=== PATIENT | male | born 1945 | race Caucasian/White ===

== ENCOUNTER 2018-08-13 10:12 | Outpatient (CLI) | payer MEDICARE ==
--- NOTE | 2018-08-13 11:52 | RAD ---
2 VIEWS CHEST: Date: 08/13/18 COMPARISON: 05/09/17. HISTORY: Fever, bronchitis. FINDINGS: Incompletely imaged cervical spine fusion hardware is present. There is degenerative change involving the acromioclavicular joints bilaterally. There is no pneumothorax, pleural fluid, lobar consolidati on, or alveolar edema. IMPRESSION: No focal consolidation or alveolar edema. POS: [facility]
== END 2018-08-13 10:13 | disposition home or self-care (01) ==
LOC: SCSRAD 10:12
PROVIDERS: ATTEND Nurse Practitioner Family
DX: J40 Bronchitis, not specified as acute or chronic (principal)
CPT/HCPCS: 71046

== ENCOUNTER 2019-01-21 06:25 | Outpatient (CLI) | payer MEDICARE ==
[2019-01-21 09:37] LABS: #Eosinphils 0.1 thou/uL (0.0-0.7); #Lymphocytes 1.7 thou/uL (1.20-3.40); #Monocytes 0.5 thou/uL (0.11-0.59); #Neutrophils 3.1 thou/uL (1.40-6.50); %Basophils 0.2 % (0.0-1.0); %Eosinophils 1.6 % (0.0-10.0); %Lymphocytes 30.7 % (21.0-51.0); %Monocytes 8.9 % (0.0-10.0); %Neutrophils 58.6 % (42.0-75.0); Hemoglobin 14.3 g/dL (14.0-18.0); Mean Corpuscular HGB CONC 33.2 g/dL (32.0-36.0); Mean Corpuscular Volume 99.6 fL (78.0-98.0); Mean Platelet Volume 7.9 fL (7.4-10.4); Platelet Count 169 thou/uL (130-400); RBC Distribution Width 11.3 % (11.5-14.5); Red Blood Cell (RBC) Count 4.34 mill/uL (4.70-6.10); White Blood Cell (WBC) Count 5.4 thou/uL (4.8-10.8)
[2019-01-21 09:59] LABS: ALT (SGPT) 15 U/L (8-55); AST (SGOT) 22 U/L (5-34); Albumin 4.5 g/dL (3.4-4.8); Alkaline Phosphatase 64 U/L (40-150); Anion Gap 14 mmol/L (10-20); BUN (Urea Nitrogen) 12 mg/dL (8.4-25.7); Bilirubin, Total 0.9 mg/dL (0.2-1.2); Calc. Creatinine Clearance 0 mL/min (70-130); Calcium 9.8 mg/dL (7.8-10.44); Carbon Dioxide 21 mmol/L (23-31); Chloride 103 mmol/L (98-107); Estimated GFR-MDRD 90; Globulin 2.9 g/dL (2.4-3.5); Glucose 82 mg/dL (83-110); Potassium 4.3 mmol/L (3.5-5.1); Protein, Total 7.4 g/dL (5.8-8.1); Sodium 134 mmol/L (136-145)
== END 2019-01-21 06:26 | disposition home or self-care (01) ==
LOC: LABBT 06:25
PROVIDERS: ATTEND Surgery
DX: Z01.812 Encounter for preprocedural laboratory examination (principal); K40.20 Bilateral inguinal hernia, without obstruction or gangrene, not specified as recurrent
CPT/HCPCS: 80053; 85025

== ENCOUNTER 2019-01-26 08:24 | Day surgery (SDC) | payer MEDICARE ==
[2019-01-21 08:28] VITALS: BMI 20.2
[2019-01-26] MEDS ORDERED: Levofloxacin 500 mg/D5W 100 ml Premix Bag ONE (09:08)
[2019-01-26] MEDS ORDERED: Fentanyl 100 MCG/2 ML VIAL ONE ×2 (10:16)
[2019-01-26] MEDS ORDERED: Bupivacaine/Epinephrine 0.25% 30 ML VIAL ONE (10:19)
--- NOTE | 2019-01-26 12:08 | OP ---
DATE OF PROCEDURE: 01/26/2019 PREOPERATIVE DIAGNOSIS: Bilateral inguinal hernia. PROCEDURES PERFORMED: Bilateral inguinal hernia repair with mesh. INDICATIONS: A 73-year-old male, who has enlarging bilateral groin bulges that caused pain. FINDINGS: He had an indirect and direct inguinal hernia on the left and a direct inguinal hernia on the right. DESCRIPTION OF PROCEDURE: After informed consent was obtained, the patient was taken to the operating room, given general mask anesthesia, placed in the supine position. His abdomen was prepped and draped in usual fashion. Local anesthesia infiltrated subcutaneously and deep. Approached the left side first. Transverse groin incision performed. Subcu divided sharply. The fascia of the external oblique was incised in direction of its fibers through the external ring. Spermatic cord isolated with a Jennifer drain. Cremasteric fiber , there was a hernia sac. This was dissected from surrounding cord structures down to the internal ring and reduced. Reduction maintained with a PHS hernia system, placed in the preperitoneal space. Anterior was laid out, sutured to the pubic tubercle medially. A notch was cut out for the spermatic cord, and laterally it was tucked under the external oblique fascia. Hemostasis was achieved. The mesh was sutured to the pubic tubercle with a 2-0 Prolene suture. Again, a notch cut out for the spermatic cord. The external oblique fascia was closed with a running 3-0 Vicryl. Tamera was closed with interrupted 3-0 Vicryl. Skin closed with a running subcuticular 4-0 Rapide. I then approached on the right side. Local anesthesia infiltrated subcutaneously, and deep transverse right inguinal incision was performed. Subcu divided sharply. The fascia of the external oblique was incised in direction of its fibers through the external ring. Spermatic cord isolated with a Jennifer drain. Cremasteric fibers . There was no indirect component. The direct hernia was circumscribed and reduced. Reduction maintained with a PHS hernia system, posterior placed in the preperitoneal space, anterior was laid out, tucked under the external oblique fascia laterally, sutured to the pubic tubercle medially with a 2-0 Prolene suture. A notch was cut out for the spermatic cord. Hemostasis was assured. The external oblique fascia closed over the cord with a running 3-0 Vicryl. Tamera was closed with interrupted 3-0 Vicryl and skin closed with a running subcuticular 4-0 Rapide. Steri-Strips applied. Sterile bandage applied. The patient tolerated the procedure well, transferred to Recovery in good condition. Sponge and needle count verified correct x2. Job ID: [id number]
[2019-01-26] MEDS ORDERED: PROPOFOL 200 MG/20 ML VIAL ONE (16:29)
[2019-01-26] MEDS ORDERED: ePHEDrine 50 MG/ML VIAL ONE (16:29)
[2019-01-26] MEDS ORDERED: Lidocaine 2% PF 5 ML VIAL ONE (16:29)
[2019-01-26] MEDS ORDERED: Dexamethasone 20 MG/5 ML VIAL ONE (16:29)
[2019-01-26] MEDS ORDERED: Ondansetron PF 4 MG/2 ML Vial ONE (16:29)
== END 2019-01-26 13:57 | disposition home or self-care (01) ==
LOC: SDC 08:24
PROVIDERS: ATTEND Surgery
PROC: 0YUA0JZ Supplement Bilateral Inguinal Region with Synthetic Substitute, Open Approach (ICD-10-PCS; principal; 2019-01-26)
DX: K40.20 Bilateral inguinal hernia, without obstruction or gangrene, not specified as recurrent (principal); I48.91 Unspecified atrial fibrillation; K21.9 Gastro-esophageal reflux disease without esophagitis; Z87.891 Personal history of nicotine dependence; Z88.0 Allergy status to penicillin; Z88.1 Allergy status to other antibiotic agents; Z79.82 Long term (current) use of aspirin; Z79.899 Other long term (current) drug therapy
CPT/HCPCS: C1781; J1100; J1956; J2001; J2405; J2704; J3010; J3490

== ENCOUNTER 2020-03-16 09:28 | Outpatient (CLI) | payer MEDICARE, OTHER ==
[2020-03-16 12:08] LABS: Anion Gap 14 mmol/L (10-20); BUN (Urea Nitrogen) 28 mg/dL (8.4-25.7); Calc. Creatinine Clearance 0 mL/min (70-130); Calcium 9.2 mg/dL (7.8-10.44); Carbon Dioxide 22 mmol/L (23-31); Chloride 105 mmol/L (98-107); Estimated GFR-MDRD 54; Glucose 89 mg/dL (83-110); Potassium 4.3 mmol/L (3.5-5.1); Sodium 137 mmol/L (136-145)
[2020-03-16 19:57] LABS: SARS-CoV-2 MS2 Positive; SARS-CoV-2 N Gene Negative; SARS-CoV-2 S Gene Negative; SARS-CoV-2 orf1ab Negative
== END 2020-03-16 09:29 | disposition home or self-care (01) ==
LOC: LABBT 09:28
PROVIDERS: ATTEND Surgery
DX: Z01.818 Encounter for other preprocedural examination (principal); Z11.59 Encounter for screening for other viral diseases; K40.91 Unilateral inguinal hernia, without obstruction or gangrene, recurrent
CPT/HCPCS: 80048; 93005; U0003; 87635; 93010

== ENCOUNTER 2020-03-21 10:22 | Day surgery (SDC) | payer MEDICARE ==
[2020-03-18 10:29] VITALS: BMI 19.5
[~2020-03-21 10:22] MED LIST: Lidocaine 1% PF 5 ML VIAL ONE; Ondansetron PF 4 MG/2 ML Vial ONE; PHENYLEPHRINE-NS 100 MCG/ML 10 ML SYRINGE ONE; PROPOFOL 200 MG/20 ML VIAL ONE; Rocuronium Bromide 10 MG/ML (10ML VIAL) ONE
[2020-03-21] MEDS ORDERED: Levofloxacin 500 mg/D5W 100 ml Premix Bag ONE (11:50)
[2020-03-21] MEDS ORDERED: Lidocaine 1% w/Epinephrine 1:100K 20 ML VIAL ONE (13:05)
[2020-03-21] MEDS ORDERED: Bupivacaine 0.25% HCL 30 ML VIAL ONE (13:05)
[2020-03-21] MEDS ORDERED: Fentanyl 100 MCG/2 ML VIAL ONE ×4 (13:13→15:17)
[2020-03-21] MEDS ORDERED: Morphine 4 MG/ML VIAL ONE (15:46)
--- NOTE | 2020-03-21 16:34 | OP ---
DATE OF PROCEDURE: 03/21/2020 PREOPERATIVE DIAGNOSIS: Right inguinal hernia, recurrent. POSTOPERATIVE DIAGNOSIS: Right inguinal hernia, recurrent. PROCEDURE PERFORMED: [place] laparoscopic right inguinal hernia repair with mesh, 3DMax large, recurrent hernia. ANESTHESIA: General. ESTIMATED BLOOD LOSS: Minimal. COMPLICATIONS: None. SPECIMENS: None. FINDINGS: Recurrent right inguinal hernia. DESCRIPTION OF PROCEDURE: The patient was taken to the operating room and laid supine on the operating room table. After general anesthetic was obtained, the bilateral abdomen and groins were shaved, prepped, and draped in a sterile fashion. A Escobedo catheter had been placed. A curved incision was made below the umbilicus. Cautery was used to dissect down to and score the fascia. Abdominal cavity was entered bluntly using a Ewelina clamp. Holding stitch of PDS was placed on each side of the fascia. Kaur trocar was placed and high-flow pneumoperitoneum was obtained. Left and right abdominal 8-mm robot trocars were placed. All ports were docked to the robot. Surgeon gone to the console. The peritoneum was taken down in the right lower quadrant into the preperitoneal space. Preperitoneal space was bluntly dissected, the pubic tubercle medially and anterior superior iliac crest laterally. There was some mesh in the medial area. There was a large indirect hernia. The indirect hernia sac was dissected away from the cord structures high up on to the peritoneum. The medial mesh was left in place and the 3DMax large mesh was brought on the sterile field. The M-labeled medial aspect was placed near over the pubic tubercle on the medial side. The mesh was curled up and overlying the pubic tubercle, so it was not fully exposed. The mesh was sewn medially and laterally medial to the pubic tubercle and lateral to the posterior fascia lateral to the vessels. The mesh was laid out to cover the femoral direct and indirect areas. The peritoneum was reapproximated using 3-0 Stratafix. All needles were removed from the abdomen and accounted for. All port sites were infiltrated using local anesthetic. All ports were removed under camera visualization. Pneumoperitoneum was let down. PDS was used to close the fascial defect above the umbilicus. All incisions were irrigated and closed using 4-0 Monocryl and Dermabond. The patient was sent to Recovery in stable condition. All instrument counts, needle counts, and lap counts were correct. Job ID: [id number]
== END 2020-03-21 16:42 | disposition home or self-care (01) ==
LOC: SDC 10:22
PROVIDERS: ATTEND Surgery
PROC: 0YU54JZ Supplement Right Inguinal Region with Synthetic Substitute, Percutaneous Endoscopic Approach (ICD-10-PCS; principal; 2020-03-21)
DX: K40.91 Unilateral inguinal hernia, without obstruction or gangrene, recurrent (principal); I48.91 Unspecified atrial fibrillation; K86.1 Other chronic pancreatitis; K21.9 Gastro-esophageal reflux disease without esophagitis; I25.10 Atherosclerotic heart disease of native coronary artery without angina pectoris; Z79.82 Long term (current) use of aspirin; Z79.899 Other long term (current) drug therapy; Z87.891 Personal history of nicotine dependence; Z88.0 Allergy status to penicillin; Z88.1 Allergy status to other antibiotic agents; Z95.5 Presence of coronary angioplasty implant and graft
CPT/HCPCS: C1781; J0690; J1956; J2270; J2405; J2704; J3010; S0020

== ENCOUNTER 2020-05-14 09:04 | Inpatient (IN) | payer MEDICAID, MEDICARE ==
--- NOTE | 2020-05-14 09:52 | RAD ---
EXAM: CHEST ONE VIEW HISTORY: Cough. COMPARISON: 12/23/2019 FINDINGS: Dual lead left subclavian cardiac pacemaking device remains in place. Cardiac silhouette is magnified by projection. Pulmonary vasculature is within normal limits. There are interstitial and patchy parenchymal opacity seen in the right perihilar region and at the right lung base with minimal left p erihilar interstitial densities seen. Findings are worrisome for infectious process. Viral pneumonitis in the correct clinical scenario is a possibility. Nodular density projecting over the le ft midlung zone is again seen and was also seen on prior study studies on 12/23/2019 and 09/20/2019. Elevation right hemidiaphragm is again seen. Postoperative changes lower cervical spine related to an terior cervical fusion are noted. Carotid artery calcifications are seen bilaterally. IMPRESSION: 1. Increased right perihilar interstitial and patchy airspace opacities with minimal increase in left perihilar interstitial opacities. Findings are worrisome for infectious process. Viral pneumonitis in the correct clinical scenario is a possibility. 2. Stable nodular density projecting over the left midlung zone. This could potentially represent a n ipple shadow, but follow-up chest x-ray with nipple markers in place is recommended.
[2020-05-14] MEDS ORDERED: Azithromycin 500 MG VIAL ONE (09:54)
[2020-05-14] MEDS ORDERED: cefTRIAXone\\ROCEPHIN 1 GM VIAL ONE (09:54)
[2020-05-14 09:56] LABS: #Lymphocytes 1.1 thou/uL (1.20-3.40); #Monocytes 0.4 thou/uL (0.11-0.59); #Neutrophils 4.2 thou/uL (1.40-6.50); %Basophils 0.6 % (0.0-1.0); %Eosinophils 0.7 % (0.0-10.0); %Lymphocytes 19.5 % (21.0-51.0); %Monocytes 6.2 % (0.0-10.0); %Neutrophils 73.1 % (42.0-75.0); Hemoglobin 14.1 g/dL (14.0-18.0); Mean Corpuscular HGB CONC 30.8 g/dL (32.0-36.0); Mean Corpuscular Hemoglobin 31.5 pg (27.0-31.0); Mean Platelet Volume 9.4 fL (7.4-10.4); Platelet Count 170 thou/uL (130-400); RBC Distribution Width 13.6 % (11.5-14.5); Red Blood Cell (RBC) Count 4.47 mill/uL (4.70-6.10); White Blood Cell (WBC) Count 5.7 thou/uL (4.8-10.8)
[2020-05-14 10:04] LABS: INR-International Normal Ratio 1.5; PTT 29.7 sec (22.9-36.1); Prothrombin Time 17.9 sec (12.0-14.7)
[2020-05-14 10:19] LABS: ALT (SGPT) 24 U/L (8-55); AST (SGOT) 21 U/L (5-34); Albumin 4.4 g/dL (3.4-4.8); Alkaline Phosphatase 66 U/L (40-110); Anion Gap 17 mmol/L (10-20); BUN (Urea Nitrogen) 19 mg/dL (8.4-25.7); Bilirubin, Total 1.5 mg/dL (0.2-1.2); Calc. Creatinine Clearance 0 mL/min (70-130); Calcium 9.2 mg/dL (7.8-10.44); Carbon Dioxide 19 mmol/L (23-31); Chloride 102 mmol/L (98-107); Estimated GFR-MDRD 63; Globulin 2.8 g/dL (2.4-3.5); Glucose 99 mg/dL (83-110); Potassium 4.2 mmol/L (3.5-5.1); Protein, Total 7.2 g/dL (5.8-8.1); Sodium 134 mmol/L (136-145)
[2020-05-14] MEDS ORDERED: Electrolyte Replacement Protoc 1 EACH EACH IVPB PRN (11:05)
[2020-05-14 11:13] LABS: Phosphorus 3.8 mg/dL (2.3-4.7)
[2020-05-14 11:19] LABS: CRP (Inflammatory) 4.99 mg/dL (= or < 0.5); Magnesium 1.8 mg/dL (1.6-2.6)
--- NOTE | 2020-05-14 11:19 | CT ---
CT CHEST WITHOUT CONTRAST CLINICAL INDICATION: Shortness of breath and wheezing. Pneumonia. Weakness. COMPARISON: 05/09/2017. FINDINGS: Aorta: Vascular calcifications are seen in the thoracic aorta. Vascular calcifications are also seen in the coronary arteries. Lungs: A moderately large right pleural effusion is present with associated passive atelectasis. Hesnley maryam, there are additional right perihilar interstitial and patchy alveolar density worrisome for associated infectious process. Mild patchy airspace density is seen in the left upper lobe which also could be related to focal area of pneumonitis. No left pleural effusion is seen. Mediastinum: Lack of intravenous contrast limits evaluation of the mediastinal structures and evaluat ion of lymphadenopathy. However, no discrete enlarged lymph node is seen. Dual lead left subclavian cardiac pacemaking device is noted in place. The heart is borderline enlarged. Thyroid gland: Artifact through this region which limits adequate evaluation. No large discrete thyro id nodule is appreciated. Osseous structures: Postoperative changes related to anterior cervical fusion are partially imaged in volving the lower cervical spine. A stable subcentimeter circumscribed lytic lesion is seen in the T12 vertebral body. This lucency was also seen on a study in 2012, and this study suggested that this lucency was secondary to Schmorl's node. Chest wall: No abnormality visualized. Upper abdomen: Postcholecystectomy changes are seen. Incompletely imaged subcentimeter hyperdense les ion is seen in the midportion right kidney which cannot be further characterized due to small size. Moderate amount retained fecal material seen in the splenic flexure. IMPRESSION: 1. Moderately large right pleural effusion and passive atelectasis. 2. Interstitial and patchy airspace densities in the right upper and right middle lobe as well as pat maribell density in the left upper lobe. Findings are worrisome for infectious process. Follow-up to resolution is recommended. 3.Cardiomegaly with vascular calcifications in the coronary arteries. 4. Incompletely imaged or evaluated increased density lesion midportion right kidney also partially i axel on the study in 2016.
[2020-05-14] MEDS ORDERED: Furosemide 40 MG/4 ML VIAL ONE (11:23)
[2020-05-14 11:27] LABS: SARS-CoV-2 NAA Rapid Test Not Detected (NotDetected)
[2020-05-14] MEDS ORDERED: Electrolyte Replacement Protocol FS PRN (11:30)
--- NOTE | 2020-05-14 12:20 | CT ---
BRAIN CT WITHOUT IV CONTRAST: HISTORY: Altered mental status. FINDINGS: Fairly marked stable bilateral atrophy. No focal mass or midline shift. Little change from prior . IMPRESSION: No mass or bleed or other significant acute intracranial process. POS: OFF
[2020-05-14] MEDS ORDERED: Sodium Chloride 0.9% 1,000 ML IV SCH (13:00)
--- NOTE | 2020-05-14 13:05 | PDOC.HHP ---
Hospitalist HPI - History of Present Illness Shortness of breath with breathing History of Present Illness: Patient is a 75-year-old male with atrial fibrillation, coronary artery disease and congestive heart failure presented to the emergency room shortness of breath and wheezing over the last 3 days. The son reported that patient has been seeing things like mice and spiders which were not actually there. This cough was essentially nonproductive. He also was short of breath on [id number] exertion. Due to worsening symptoms he was brought into the emergency room for evaluation. His vital signs in the emergency room showed temperature 97.8 respiration of 22 pulse rate of 104 with blood pressure of 112/96. The CT scan of the chest showed moderate large right pleural effusion with passive atelectasis along with right upper, right middle and left upper lobe interstitial and patchy air space densities consistent with pneumonia. Hospitalist ROS - Review of Systems Respiratory: reports: cough, dry Cardiovascular: denies: chest pain, palpitations, orthopnea, paroxysmal noc. dyspnea, edema, light headedness, other Gastrointestinal: denies: nausea, vomiting, abdominal pain, diarrhea, constipation, melena, hematochezia, other All other systems reviewed; all pertinent +/- noted in HPI/Subj - Medication Medications: Amiodarone, Eliquis, midodrine and Ambien as needed Patient is allergic to penicillin and Keflex.Causes generalized body swelling with rash per spouse Hospitalist History - Past Medical History Cardiac: reports: AFIB, CAD, Other (Orthostatic hypotension) Gastrointestinal: reports: Peptic ulcer disease Musculoskeletal: reports: Osteoarthritis - Past Surgical History Past Surgical History: reports: Appendectomy, Cholecystectomy, Other (Bilateral hernia repair, neck surgery, lumbar surgery, EGD, leukopenia, ERCP with sphincterotomy for gallstone pancreatitis, Pacemaker) - Family History Family History: reports: diabetes mellitus - Social History Smoking Status: Former smoker Alcohol: reports: None Drugs: reports: none Living Situation: With Family - Exam General Appearance: ill appearing General - other findings: Patient in mild respiratory distress Eye: PERRL, anicteric sclera ENT: normocephalic atraumatic, no oropharyngeal lesions Neck: supple, no JVD Heart: RRR, no gallops, no rubs, normal peripheral pulses Respiratory: no wheezes, normal chest expansion, rales, rhonchi Gastrointestinal: soft, non-tender, non-distended, normal bowel sounds Extremities: no cyanosis, no clubbing Neurological: cranial nerve grossly intact, normal sensation to touch, no weakness Musculoskeletal: normal tone, normal strength, generalized weakness Psychiatric: normal affect, A&O x 3 Hospitalist Results - Labs Result Diagrams: 05/14/20 09:36 05/14/20 09:36 Lab results: WBC 5.7 thou/uL (4.8-10.8) 05/14/20 09:36 Hgb 14.1 g/dL (14.0-18.0) 05/14/20 09:36 Hct 45.8 % (42.0-52.0) 05/14/20 09:36 MCV 102.0 fL (78.0-98.0) H 05/14/20 09:36 Plt Count 170 thou/uL (130-400) 05/14/20 09:36 Neutrophils % 73.1 % (42.0-75.0) 05/14/20 09:36 Sodium 134 mmol/L (136-145) L 05/14/20 09:36 Potassium 4.2 mmol/L (3.5-5.1) 05/14/20 09:36 Chloride 102 mmol/L (98-107) 05/14/20 09:36 Carbon Dioxide 19 mmol/L (23-31) L 05/14/20 09:36 BUN 19 mg/dL (8.4-25.7) 05/14/20 09:36 Creatinine 1.13 mg/dL (0.7-1.3) 05/14/20 09:36 Glucose 99 mg/dL (83-110) 05/14/20 09:36 Lactic Acid 1.8 mmol/L (0.5-2.2) 05/14/20 09:36 Calcium 9.2 mg/dL (7.8-10.44) 05/14/20 09:36 Total Bilirubin 1.5 mg/dL (0.2-1.2) H 05/14/20 09:36 AST 21 U/L (5-34) 05/14/20 09:36 ALT 24 U/L (8-55) 05/14/20 09:36 Alkaline Phosphatase 66 U/L (40-110) 05/14/20 09:36 Troponin I 0.015 ng/mL (< 0.028) 05/14/20 09:36 C-Reactive Protein 4.99 mg/dL (= or < 0.5) H 05/14/20 09:36 B-Natriuretic Peptide 1344.4 pg/mL (0-100) H 05/14/20 09:36 Serum Total Protein 7.2 g/dL (5.8-8.1) 05/14/20 09:36 Albumin 4.4 g/dL (3.4-4.8) 05/14/20 09:36 Laboratory Tests 05/14/20 05/14/20 05/14/20 09:21 09:36 09:36 Lactic Acid Magnesium Total Bilirubin 1.5 H Lactate Dehydrogenase 224 H Troponin I C-Reactive Protein B-Natriuretic Peptide 1344.4 H 05/14/20 05/14/20 05/14/20 09:36 09:36 09:36 Lactic Acid 1.8 Magnesium 1.8 Total Bilirubin Lactate Dehydrogenase Troponin I 0.015 C-Reactive Protein 4.99 H B-Natriuretic Peptide - EKG Interpretation EKG: Paced rhythm by my review - Radiology Interpretation CT scan - chest Status: image reviewed by me Additional Comment: Findings as discussed above Chest x-ray Status: image reviewed by me Additional Comment: Infiltrate with pleural effusion. Hospitalist H&P A/P - Problem (1) Sepsis due to pneumonia Code(s): J18.9 - PNEUMONIA, UNSPECIFIED ORGANISM; A41.9 - SEPSIS, UNSPECIFIED ORGANISM Status: Acute (2) Pleural effusion, right Code(s): J90 - PLEURAL EFFUSION, NOT ELSEWHERE CLASSIFIED Status: Acute (3) Toxic metabolic encephalopathy Code(s): G92 - TOXIC ENCEPHALOPATHY Status: Acute (4) Abnormal LFTs Code(s): R94.5 - ABNORMAL RESULTS OF LIVER FUNCTION STUDIES Status: Acute (5) Hyponatremia Code(s): E87.1 - HYPO-OSMOLALITY AND HYPONATREMIA Status: Acute (6) CAD (coronary artery disease) Code(s): I25.10 - ATHSCL HEART DISEASE OF [place] CORONARY ARTERY W/O ANG PCTRS Status: Chronic (7) Chronic atrial fibrillation Code(s): I48.20 - CHRONIC ATRIAL FIBRILLATION, UNSPECIFIED Status: Chronic (8) Former smoker Status: Chronic (9) H/O orthostatic hypotension Code(s): Z86.79 - PERSONAL HISTORY OF OTHER DISEASES OF THE CIRCULATORY SYSTEM Status: Chronic (10) Hypomagnesemia Code(s): E83.42 - HYPOMAGNESEMIA Status: Acute (11) History of peptic ulcer disease Code(s): Z87.11 - PERSONAL HISTORY OF PEPTIC ULCER DISEASE Status: Chronic - Plan Plan: Patient probably has pneumonia due to suspected gram-negative organism. He also has moderate right-sided pleural effusion. His mentation is slowly improving. He has moderate to severe allergies to penicillin. He will be started on aztreonam along with doxycycline. Will avoid Levaquin due to risk of QT prolongation with amiodarone. Pulmonary will be consulted. Will resume home medication including Eliquis. We may need to hold Eliquis if patient probably needs thoracentesis. Hold IV fluids for now. Per Dr. Zhu's office record patient had an echocardiogram on January 12 that showed moderate mitral regurg itation with ejection fraction of 40 to 45%. Will recheck labs in a.m. Replace magnesium. Full code verified with the spouse who is the D POA. Patient will require 2 to 3 days for stabilization. Will check strep pneumonia and Legionella urinary antigen.
[2020-05-14 13:13] LABS: Troponin I Less than 0.010 ng/mL (< 0.028)
[2020-05-14 13:14] VITALS: BMI 20.8
[2020-05-14] MEDS ORDERED: Calcium Carbonate 500 MG ChewTAB PO PRN (13:27)
[2020-05-14] MEDS ORDERED: Bisacodyl 10 MG SUPP PR PRN (13:27)
[2020-05-14] MEDS ORDERED: Senokot S 8.6-50 MG TAB PO PRN (13:27)
[2020-05-14] MEDS ORDERED: Melatonin 3 MG TAB PO PRN (13:31)
[2020-05-14] MEDS ORDERED: Meropenem 1 GM in Sodium Chloride 0.9% 100 ML IVPB SCH (13:45)
[2020-05-14] MEDS ORDERED: Magnesium 2 GM/50 ML 2 GM in Premix Bag 1 BAG IVPB SCH (14:00)
[2020-05-14] MEDS: Acetaminophen 325 MG TAB PO PRN (14:56)
[2020-05-14] MEDS: Aztreonam 2 GM in Sodium Chloride 0.9% 100 ML IVPB SCH (15:19)
--- NOTE | 2020-05-14 16:37 | CON ---
DATE OF CONSULTATION: 05/14/2020 SUBJECTIVE: Mr. Paris is a 75-year-old gentleman who states that he was in his usual state of health until the past month or two. Over that time, he has noted a worsening of exercise capacity from a 1 mile stamina down to about 100 yards. He denies any orthopnea, but has had fairly frequent PND. He has not noted any edema, but does note an increase in abdominal girth and a weight gain of about 5 pounds. He has not had any chest pain. He has a history of chronic atrial fib for which he is on rate-controlling agents and Eliquis. He has not had a previous myocardial infarction or known diagnosis of congestive heart failure. He does have an intermittent cough to go with his shortness of breath, but has not had any sputum, fevers or chills. He has had no recent travel or exposure. The patient presented to the emergency room for assessment of his dyspnea. Evaluation revealed a moderate to large right pleural effusion. He is subsequently admitted to the hospital for further intervention. Pulmonary Service is consulted. He has been placed on empiric antibiotics. SOCIAL HISTORY: The patient is a 75-year-old male. He reports allergy to penicillin and Keflex. He is a long-standing smoker, although recently his usage is decreased and he states that the cigarettes "just don't taste good." He has not had any other symptoms of loss of smell or taste. He has consumed alcohol in the past, none in many years. He is retired. MEDICATIONS: His home medications include; 1. Eliquis 5 mg b.i.d. 2. Amiodarone. 3. He has not been on a diuretic. PAST MEDICAL HISTORY: Remarkable for atrial fib on rate control and Eliquis. He denies a known history of chronic obstructive pulmonary disease or home oxygen. He denies a prior myocardial infarction or known diagnosis of heart failure. He has had bout of pancreatitis presumed secondary to his previous smoking. He has had back and neck surgery as well as a cholecystectomy. He has an AV pacer. FAMILY HISTORY: Noncontributory. REVIEW OF SYSTEMS: Remarkable as above. PHYSICAL EXAMINATION: VITAL SIGNS: Blood pressure 107/75, saturation 95% on oxygen, 2 L nasal cannula. He is currently afebrile, heart rate is 87, height 5 feet 11 inches, weight 149. His BMI is 20.9. GENERAL: He is a 75-year-old gentleman. He is awake and alert. He has slightly decreased hearing. HEENT: Neck; shows no adenopathy. He has no JVD. He has no carotid bruit. LUNGS: Show decreased breath sounds with dullness in the right base. There is no wheezing or rales. He is not using accessory muscles. HEART: Regular rate and rhythm. ABDOMEN: Soft. There is no organomegaly. There is no guarding or rebound. There is no tenderness. EXTREMITIES: Without cyanosis, clubbing, or edema. Chest x-ray shows pacemaker via the left approach. The heart size is normal. There is some elevation of the right diaphragm, but on CT, he has a large effusion suggesting that this is largely subpulmonic. I don't see an obvious mass. There is some compressive atelectasis in the right base. LABORATORY DATA: White count 5700, hemoglobin is 14.1, and platelet count 170,000. His Protime is 18 seconds with INR of 1.5. Electrolytes notable for sodium 134, potassium 4.2, chloride 102, CO2 is 19. Liver tests are negative. His BNP is elevated at 1345. His CRP is 5. Troponin is negative. His COVID swab is negative. IMPRESSION: 1. Dyspnea with pleural effusion, right, PND, and decrease in exercise capacity. This is most likely all related to his underlying effusion, which I predict that is secondary to a component of otherwise not yet diagnosed heart failure. 2. Chronic atrial fib on rate controlling agents and Eliquis. 3. Long-standing and active smoking history. PLAN: I have reviewed the radiographic findings with the patient as well as my diagnostic considerations. I think that he is an excellent candidate for diagnostic and therapeutic thoracentesis. I have talked to him about risks and benefits associated with the procedure. We will hold his Eliquis this evening and pursue thoracentesis by tomorrow followed by resumption of his medications. Echocardiogram has been requested. I have talked to the patient about the probable need for fluid restriction and salt restriction. He does note that he has had slightly less urinary output recently than he is accustomed to. Decision regarding more aggressive and invasive cardiac assessment is deferred at this time. I do not think that he has a pneumonia, but rather fluid associated compressive atelectasis. In most situations, I would assume he can be discharged fairly soon following thoracentesis. Thank you for this consultation. Pulmonary Service will continue to follow. Job ID: [id number]
[2020-05-14 20:28] LABS: Strep pneumo Urine Ag NEGATIVE (NEGATIVE)
[2020-05-14 20:29] LABS: Legionella Urinary Ag Negative (Negative)
[2020-05-14] MEDS ORDERED: Zolpidem Tartrate 5 MG TAB PO SCH (21:00)
[2020-05-14] MEDS: Doxycycline 100 MG CAP PO SCH (21:08)
[2020-05-14] MEDS: guaiFENesin ER 600 MG TAB PO SCH (21:09)
[2020-05-14] MEDS: Midodrine HCl 5 MG TAB PO SCH (21:09)
[2020-05-14] MEDS: Famotidine 20 MG TAB PO SCH (21:09)
[2020-05-15] MEDS: Aztreonam 2 GM in Sodium Chloride 0.9% 100 ML IVPB SCH ×2 (01:53→14:54)
[2020-05-15 06:07] LABS: #Lymphocytes 1.2 thou/uL (1.20-3.40); #Monocytes 0.7 thou/uL (0.11-0.59); #Neutrophils 5.2 thou/uL (1.40-6.50); %Basophils 0.4 % (0.0-1.0); %Eosinophils 0.5 % (0.0-10.0); %Lymphocytes 16.4 % (21.0-51.0); %Monocytes 9.8 % (0.0-10.0); Hemoglobin 13.8 g/dL (14.0-18.0); Mean Corpuscular HGB CONC 32.7 g/dL (32.0-36.0); Mean Corpuscular Hemoglobin 33.2 pg (27.0-31.0); Mean Platelet Volume 9.9 fL (7.4-10.4); Platelet Count 139 thou/uL (130-400); RBC Distribution Width 13.7 % (11.5-14.5); Red Blood Cell (RBC) Count 4.16 mill/uL (4.70-6.10); White Blood Cell (WBC) Count 7.1 thou/uL (4.8-10.8)
[2020-05-15 06:31] LABS: ALT (SGPT) 22 U/L (8-55); AST (SGOT) 20 U/L (5-34); Albumin 3.8 g/dL (3.4-4.8); Alkaline Phosphatase 59 U/L (40-110); Anion Gap 17 mmol/L (10-20); BUN (Urea Nitrogen) 21 mg/dL (8.4-25.7); Calc. Creatinine Clearance 58 mL/min (70-130); Calcium 8.5 mg/dL (7.8-10.44); Carbon Dioxide 19 mmol/L (23-31); Chloride 103 mmol/L (98-107); Estimated GFR-MDRD 68; Globulin 2.5 g/dL (2.4-3.5); Glucose 86 mg/dL (83-110); Potassium 4.2 mmol/L (3.5-5.1); Protein, Total 6.3 g/dL (5.8-8.1); Sodium 135 mmol/L (136-145)
[2020-05-15] MEDS: Midodrine HCl 5 MG TAB PO SCH ×2 (08:57→20:00)
[2020-05-15] MEDS: Famotidine 20 MG TAB PO SCH ×2 (08:57→20:00)
[2020-05-15] MEDS: Doxycycline 100 MG CAP PO SCH ×2 (08:57→20:00)
[2020-05-15] MEDS: Saccharomyces boulardii 250 MG CAP PO SCH (08:57)
[2020-05-15] MEDS: Cyanocobalamin (Vitamin B-12) 1,000 MCG TAB PO SCH (08:58)
[2020-05-15] MEDS: Multivit, Therapeutic 1 TAB PO SCH (08:58)
[2020-05-15] MEDS: Amiodarone 200 MG TAB PO SCH (08:58)
[2020-05-15] MEDS: guaiFENesin ER 600 MG TAB PO SCH ×2 (08:58→20:00)
[2020-05-15] MEDS: Folic Acid 1 MG TAB PO SCH (08:58)
[2020-05-15] MEDS ORDERED: Aspirin 81 mg Enteric Coated Tablet PO SCH (09:00)
--- NOTE | 2020-05-15 12:47 | RAD ---
CHEST 1 VIEW: HISTORY: Followup thoracentesis, shortness of breath. FINDINGS: There has been a marked decrease in the size of the previously noted right pleural effusion. No evid ence for significant pneumothorax. Heart size is normal. The left lung is clear. Stable left trans venous pacemaker. IMPRESSION: Decrease in the right pleural effusion. No significant pneumothorax. POS: OFF
--- NOTE | 2020-05-15 12:48 | PRG ---
DATE OF SERVICE: 05/15/2020 SUBJECTIVE: Mr. Paris feels that he is a little less dyspneic today than he was yesterday. His echocardiogram has been completed, but results are pending. He still has exertional dyspnea when trying to get to the bathroom. He has no PND or orthopnea last night. PHYSICAL EXAMINATION: VITAL SIGNS: Blood pressure is 111/79, he is afebrile, heart rate 100, respiratory rate 16, and pulse ox is 97% on 2 L cannula. GENERAL: He is awake, alert, and not in acute distress. He is not using accessory muscles. HEENT: Shows no adenopathy or JVD. LUNGS: Clear on the left. He has decreased breath sounds with dullness in the right base. HEART: Regular rate and rhythm. ABDOMEN: Soft. EXTREMITIES: He has no significant peripheral edema. LABORATORY DATA: White count 7100, hemoglobin is 13.8, and platelet count 139,000. Electrolytes today include sodium 135, potassium 4.2, chloride 103, CO2 is 19, BUN 21, creatinine 1.5. Liver tests are normal. His TSH was elevated at 7.7. IMPRESSION: 1. Dyspnea with pleural effusion, suggestive of heart failure with dyspnea. The patient has pleural effusion on exam. He has a history of chronic atrial fibrillation and I suspect that he has occult left ventricular dysfunction. Echocardiogram has been performed, but results are not yet available. Given his progressive respiratory symptoms, thoracentesis for diagnosis, and therapeutic benefit was planned today. Eliquis has been held since last night. 2. Chronic atrial fibrillation. PLAN: We will do thoracentesis. Fluid will be sent for appropriate analysis. The majority of unilateral effusions associated with heart failure are on the right and that would be consistent with this patient's presentation. He has had progressive PND and a reduction in exercise capacity. From a purely effusion related perspective, he can be discharged following thoracentesis to follow up in the Pulmonary Clinic and with his primary care physician. Job ID: [id number]
[2020-05-15 13:16] LABS: Pleural Fluid, Protein 1.7 g/dL
[2020-05-15 13:18] LABS: RBC Count-Automated (BF) 17604 /cu.mm; WBC/Nucleated-Auto (BF) 358 uL
[2020-05-15 13:30] LABS: BF Color Red; Body Fluid Source Pleural Fluid; Clarity Cloudy/Turbid (Clear); Tube # EDTA
[2020-05-15 13:43] LABS: BF Segmented Neutrophils 27 %; Cell Count Non Hematic 42 %; Lymphocytes 30 %
--- NOTE | 2020-05-15 16:46 | PDOC.HOSPP ---
- Subjective Encounter Date: 05/15/20 Encounter Time: 09:00 Subjective: Patient seen and examined for pneumonia with pleural effusion. Denies any fever or chills. Dry cough reported. Short of breath on moderate exertion. - Objective Vital Signs & Weight: Vital Signs (12 hours) Temp Pulse Resp BP Pulse Ox 05/15/20 13:59 91 16 98 05/15/20 08:00 97.3 F L 100 16 111/79 97 05/15/20 06:17 99 16 100 05/15/20 05:19 97.8 F 76 18 132/63 98 Weight Weight 149 lb 9.6 oz I&O: 05/14/20 05/15/20 05/16/20 06:59 06:59 06:59 Intake Total 360 Balance 360 Result Diagrams: 05/15/20 05:21 05/15/20 05:21 Additional Labs: Accuchecks 05/15/20 00:05 POC Glucose 97 Radiology Reviewed by me: Yes (CT chestbilateral infiltrate with right pleural effusion) Hospitalist ROS - Review of Systems Cardiovascular: denies: chest pain, palpitations, orthopnea, paroxysmal noc. dyspnea, edema, light headedness, other Gastrointestinal: denies: nausea, vomiting, abdominal pain, diarrhea, constipation, melena, hematochezia, other - Medication Medications: Active Medications Generic Name Dose Route Start Last Admin Trade Name Freq PRN Reason Stop Dose Admin Acetaminophen 650 mg 05/14/20 13:27 05/14/20 14:56 Acetaminophen 325 Mg Tab PO 650 mg Q4H PRN Administration Headache/Fever/Mild Pain (1-3) Albuterol/Ipratropium 3 ml 05/14/20 13:31 05/15/20 06:17 Ipratropium/Albuterol Sulfate 3 Ml Neb NEB 3 ml Q4H PRN Administration SOB &/or Wheezing Amiodarone HCl 200 mg 05/15/20 09:00 05/15/20 08:58 Amiodarone 200 Mg Tab PO 200 mg QAM YANY Administration Cyanocobalamin 1,000 mcg 05/15/20 09:00 05/15/20 08:58 Cyanocobalamin (Vitamin B-12) 1,000 Mcg Tab PO 1,000 mcg DAILY YANY Administration Doxycycline Hyclate 100 mg 05/14/20 21:00 05/15/20 08:57 Doxycycline 100 Mg Cap PO 100 mg BID YANY Administration Famotidine 20 mg 05/14/20 21:00 05/15/20 08:57 Famotidine 20 Mg Tab PO 20 mg BID YANY Administration Folic Acid 1 mg 05/15/20 09:00 05/15/20 08:58 Folic Acid 1 Mg Tab PO 1 mg DAILY YANY Administration Guaifenesin 600 mg 05/14/20 21:00 05/15/20 08:58 Guaifenesin Er 600 Mg Tab PO 600 mg Q12HR YANY Administration Aztreonam 2 gm/ Sodium 100 mls @ 100 mls/hr 05/14/20 14:00 05/15/20 14:54 Chloride IVPB 100 mls 0200,1400 YANY Administration Midodrine 2.5 mg 05/14/20 21:00 05/15/20 08:57 Midodrine Hcl 5 Mg Tab PO 2.5 mg BID YANY Administration Multivitamins 1 tab 05/15/20 09:00 05/15/20 08:58 Multivit, Therapeutic 1 Tab PO 1 tab DAILY YANY Administration Saccharomyces Boulardii 250 mg 05/15/20 09:00 05/15/20 08:57 Saccharomyces Boulardii 250 Mg Cap PO 250 mg DAILY YANY Administration Sodium Chloride 10 ml 05/14/20 21:00 05/15/20 08:58 Flush - Normal Saline 10 Ml Syringe IVF 10 ml Q12HR YANY Administration Zolpidem Tartrate 5 mg 05/14/20 21:00 05/14/20 21:08 Zolpidem Tartrate 5 Mg Tab PO 5 mg HS YANY Administration - Exam General Appearance: NAD Neck: supple, no JVD Heart: RRR, no gallops, no rubs, normal peripheral pulses Respiratory: no wheezes, normal chest expansion, rales, rhonchi Respiratory - other findings: Diminished air entry at right base Gastrointestinal: soft, non-distended, normal bowel sounds, no guarding, no rigidity Extremities: no cyanosis, no clubbing, no edema Extremities - other findings: No calf tenderness Neurological: no new deficit Musculoskeletal: generalized weakness Psychiatric: normal affect, A&O x 3 Hosp A/P (1) Sepsis due to pneumonia Code(s): J18.9 - PNEUMONIA, UNSPECIFIED ORGANISM; A41.9 - SEPSIS, UNSPECIFIED ORGANISM Status: Acute (2) Pleural effusion, right Code(s): J90 - PLEURAL EFFUSION, NOT ELSEWHERE CLASSIFIED Status: Acute (3) Toxic metabolic encephalopathy Code(s): G92 - TOXIC ENCEPHALOPATHY Status: Acute (4) Abnormal LFTs Code(s): R94.5 - ABNORMAL RESULTS OF LIVER FUNCTION STUDIES Status: Acute (5) Hyponatremia Code(s): E87.1 - HYPO-OSMOLALITY AND HYPONATREMIA Status: Acute (6) CAD (coronary artery disease) Code(s): I25.10 - ATHSCL HEART DISEASE OF [place] CORONARY ARTERY W/O ANG PCTRS Status: Chronic (7) Chronic atrial fibrillation Code(s): I48.20 - CHRONIC ATRIAL FIBRILLATION, UNSPECIFIED Status: Chronic (8) Former smoker Status: Chronic (9) H/O orthostatic hypotension Code(s): Z86.79 - PERSONAL HISTORY OF OTHER DISEASES OF THE CIRCULATORY SYSTEM Status: Chronic (10) Hypomagnesemia Code(s): E83.42 - HYPOMAGNESEMIA Status: Acute (11) History of peptic ulcer disease Code(s): Z87.11 - PERSONAL HISTORY OF PEPTIC ULCER DISEASE Status: Chronic - Plan DVT proph w/SCDs 05/15 Continue his DuoNeb with doxycycline. Thoracentesis today. Pulmonary input appreciated. Eliquis on hold. LFTs improved. Continue amiodarone, midodrine and other home medications as above. Blood cultures negative so far.
[2020-05-15] MEDS ORDERED: Zolpidem Tartrate 5 MG TAB PO PRN (16:49)
--- NOTE | 2020-05-15 17:22 | OP ---
DATE OF PROCEDURE: 05/15/2020 PROCEDURE: Thoracentesis, right. PREOPERATIVE DIAGNOSIS: Symptomatic pleural effusion. POSTOPERATIVE DIAGNOSIS: Symptomatic pleural effusion. DESCRIPTION OF PROCEDURE: Following informed consent, the patient was seated on the bedside. The posterior chest was prepped and draped and a fluid level identified by percussion. Following topical anesthesia with lidocaine, thoracentesis was performed in the usual fashion. Approximately 1000 mL of light pink colored fluid was aspirated without difficulty. The procedure was terminated when all of the fluid had been removed. The patient noted no change in symptoms. Postprocedure x-ray is pending and the fluid is sent for appropriate analysis. Job ID: [id number]
[2020-05-15] MEDS: Apixaban 5 MG TAB PO SCH (20:00)
[2020-05-16] MEDS: Aztreonam 2 GM in Sodium Chloride 0.9% 100 ML IVPB SCH ×2 (01:53→14:17)
[2020-05-16 05:52] LABS: #Neutrophils 5.7 thou/uL (1.40-6.50); %Basophils 0.2 % (0.0-1.0); %Eosinophils 0.3 % (0.0-10.0); %Lymphocytes 12.6 % (21.0-51.0); %Monocytes 13.3 % (0.0-10.0); %Neutrophils 73.7 % (42.0-75.0); Hemoglobin 12.1 g/dL (14.0-18.0); Mean Corpuscular HGB CONC 32.8 g/dL (32.0-36.0); Mean Corpuscular Hemoglobin 33.1 pg (27.0-31.0); Mean Platelet Volume 9.5 fL (7.4-10.4); Platelet Count 136 thou/uL (130-400); RBC Distribution Width 13.6 % (11.5-14.5); Red Blood Cell (RBC) Count 3.65 mill/uL (4.70-6.10); White Blood Cell (WBC) Count 7.7 thou/uL (4.8-10.8)
[2020-05-16 06:13] LABS: Anion Gap 14 mmol/L (10-20); BUN (Urea Nitrogen) 24 mg/dL (8.4-25.7); Calc. Creatinine Clearance 59 mL/min (70-130); Calcium 8.1 mg/dL (7.8-10.44); Carbon Dioxide 18 mmol/L (23-31); Chloride 106 mmol/L (98-107); Estimated GFR-MDRD 70; Glucose 96 mg/dL (83-110); Magnesium 1.7 mg/dL (1.6-2.6); Potassium 3.8 mmol/L (3.5-5.1); Sodium 134 mmol/L (136-145)
[2020-05-16] MEDS ORDERED: Magnesium 2 GM/50 ML 2 GM in Premix Bag 1 BAG IVPB SCH (07:30)
--- NOTE | 2020-05-16 07:45 | PDOC.HOSPP ---
- Subjective Encounter Date: 05/16/20 Encounter Time: 07:42 Subjective: much less sob pos-thoracentesis - Objective Vital Signs & Weight: Vital Signs (12 hours) Temp Pulse Resp BP BP Pulse Ox 05/16/20 06:54 97.8 F 107 H 16 93/64 95 05/16/20 04:00 98.4 F 102 H 18 107/74 95 05/16/20 00:18 94 L 05/16/20 00:00 98.4 F 105 H 18 105/67 94 L Weight Weight 149 lb 9.6 oz I&O: 05/15/20 05/16/20 05/17/20 06:59 06:59 06:59 Intake Total 360 480 Balance 360 480 Result Diagrams: 05/16/20 05:24 05/16/20 05:24 Hospitalist ROS - Medication Medications: Active Medications Generic Name Dose Route Start Last Admin Trade Name Freq PRN Reason Stop Dose Admin Acetaminophen 650 mg 05/14/20 13:27 05/14/20 14:56 Acetaminophen 325 Mg Tab PO 650 mg Q4H PRN Administration Headache/Fever/Mild Pain (1-3) Albuterol/Ipratropium 3 ml 05/14/20 13:31 05/15/20 06:17 Ipratropium/Albuterol Sulfate 3 Ml Neb NEB 3 ml Q4H PRN Administration SOB &/or Wheezing Amiodarone HCl 200 mg 05/15/20 09:00 05/15/20 08:58 Amiodarone 200 Mg Tab PO 200 mg QAM YANY Administration Apixaban 5 mg 05/14/20 21:00 05/15/20 20:00 Apixaban 5 Mg Tab PO 5 mg BID YANY Administration Cyanocobalamin 1,000 mcg 05/15/20 09:00 05/15/20 08:58 Cyanocobalamin (Vitamin B-12) 1,000 Mcg Tab PO 1,000 mcg DAILY YANY Administration Doxycycline Hyclate 100 mg 05/14/20 21:00 05/15/20 20:00 Doxycycline 100 Mg Cap PO 100 mg BID YANY Administration Famotidine 20 mg 05/14/20 21:00 05/15/20 20:00 Famotidine 20 Mg Tab PO 20 mg BID YANY Administration Folic Acid 1 mg 05/15/20 09:00 05/15/20 08:58 Folic Acid 1 Mg Tab PO 1 mg DAILY YANY Administration Guaifenesin 600 mg 05/14/20 21:00 05/15/20 20:00 Guaifenesin Er 600 Mg Tab PO 600 mg Q12HR YANY Administration Aztreonam 2 gm/ Sodium 100 mls @ 100 mls/hr 05/14/20 14:00 05/16/20 01:53 Chloride IVPB 100 mls 0200,1400 YANY Administration Melatonin 3 mg 05/14/20 13:31 05/15/20 20:08 Melatonin 3 Mg Tab PO 3 mg HS PRN Administration Insomnia Midodrine 2.5 mg 05/14/20 21:00 05/15/20 20:00 Midodrine Hcl 5 Mg Tab PO 2.5 mg BID YANY Administration Multivitamins 1 tab 05/15/20 09:00 05/15/20 08:58 Multivit, Therapeutic 1 Tab PO 1 tab DAILY YANY Administration Saccharomyces Boulardii 250 mg 05/15/20 09:00 05/15/20 08:57 Saccharomyces Boulardii 250 Mg Cap PO 250 mg DAILY YANY Administration Sodium Chloride 10 ml 05/14/20 21:00 05/15/20 21:09 Flush - Normal Saline 10 Ml Syringe IVF 10 ml Q12HR YANY Administration - Exam General Appearance: awake alert Neck: no JVD Heart: no murmur, irregular Respiratory - other findings: basilar rales Gastrointestinal: soft, non-tender, normal bowel sounds Extremities: no edema Hosp A/P (1) Acute systolic HF (heart failure) Code(s): I50.21 - ACUTE SYSTOLIC (CONGESTIVE) HEART FAILURE Status: Acute (2) Cardiomyopathy Code(s): I42.9 - CARDIOMYOPATHY, UNSPECIFIED Status: Acute Qualifiers: Cardiomyopathy type: ischemic Qualified Code(s): I25.5 - Ischemic cardiomy opathy (3) PNA (pneumonia) Code(s): J18.9 - PNEUMONIA, UNSPECIFIED ORGANISM Status: Acute Qualifiers: Lung location: unspecified part of lung (4) Chronic atrial fibrillation Code(s): I48.20 - CHRONIC ATRIAL FIBRILLATION, UNSPECIFIED Status: Chronic (5) Pleural effusion, right Code(s): J90 - PLEURAL EFFUSION, NOT ELSEWHERE CLASSIFIED Status: Acute (6) CAD (coronary artery disease) Code(s): I25.10 - ATHSCL HEART DISEASE OF [place] CORONARY ARTERY W/O ANG PCTRS Status: Chronic Qualifiers: Coronary Disease-Associated Artery/Lesion type: [place] artery [place] vs. transplanted heart: [place] heart Associated angina: without angina Qualified Code(s): I25.10 - Atherosclerotic heart disease of [place] coronary artery without angina pectoris - Plan consult Dr Zhu start low dose lisinopril Hx orthstatic hypotension necessitates slow titration
[2020-05-16] MEDS: Doxycycline 100 MG CAP PO SCH ×2 (08:22→21:00)
[2020-05-16] MEDS: Saccharomyces boulardii 250 MG CAP PO SCH (08:23)
[2020-05-16] MEDS: Apixaban 5 MG TAB PO SCH ×2 (08:23→19:00)
[2020-05-16] MEDS: Famotidine 20 MG TAB PO SCH ×2 (08:23→21:00)
[2020-05-16] MEDS: Folic Acid 1 MG TAB PO SCH (08:23)
[2020-05-16] MEDS: guaiFENesin ER 600 MG TAB PO SCH ×2 (08:23→21:00)
[2020-05-16] MEDS: Multivit, Therapeutic 1 TAB PO SCH (08:24)
[2020-05-16] MEDS: Amiodarone 200 MG TAB PO SCH (08:24)
[2020-05-16] MEDS: Cyanocobalamin (Vitamin B-12) 1,000 MCG TAB PO SCH (08:24)
[2020-05-16] MEDS: Midodrine HCl 5 MG TAB PO SCH ×2 (08:26→21:00)
--- NOTE | 2020-05-16 10:22 | PRG ---
DATE OF SERVICE: 05/16/2020 SUBJECTIVE: He is status post thoracentesis for transudative right chest. He is feeling better. OBJECTIVE: VITAL SIGNS: Temperature 97, pulse 107, respirations 16, sats are 95% on 2 L, blood pressure 93/64. CHEST: No wheezing. No crackles. CARDIAC: Normal S1, S2. No gallops. ABDOMEN: No masses. LABORATORY DATA: Unremarkable. EF shows 20%. ASSESSMENT AND PLAN: Respiratory failure, congestive heart failure, cardiac arrhythmias, urinary tract infection. Pulmonary manrique, appears to be relatively stable. Input from Cardiology. Disposition, hopefully, he can be discharged home in the next several days. Job ID: [id number]
[2020-05-16] MEDS: Lisinopril 2.5 MG TAB PO SCH (12:49)
--- NOTE | 2020-05-16 21:08 | CON ---
DATE OF CONSULTATION: HISTORY OF PRESENT ILLNESS: Xavier Paris is a 75-year-old white male, initially evaluated in the office on January 07, 2020. He has had multiple coronary stents placed in the past. He has history of atrial fibrillation and is on amiodarone. When I initially saw him, he had never been anticoagulated. He had dizziness and a pacemaker was placed on December 23, 2019, at [facility] by Dr. Coppola. This was a [employer] dual-chamber pacemaker. That evening, he could not breathe and systolic pressure was in the 60s. Paramedics were called. He was taken to [facility]. He had a moderate pericardial effusion. He was given IV fluids, but no other intervention. He did not have any chest pain. He was treated conservatively and then discharged. He continued to complain of episodes of lightheadedness. When I initially saw him on interrogation of his pacemaker and showed that he was having episodes of atrial fibrillation up to 16 minutes, although it is unclear if that was correlated with his episodes of lightheadedness. He underwent echocardiography, which revealed ejection fraction of 40% to 45% with mild global hypokinesis. Pacemaker is seen in the right side of the heart. There is moderate mitral regurgitation, mild tricuspid regurgitation. He returned for followup on January 24 and was placed on Eliquis. He was seen in the office on April 26, 2020, and denied any chest pain or shortness of breath. He now presents complaining of increased shortness of breath and wheezing. He had nonproductive cough. Chest CT showed moderately large right pleural effusion. He did undergo right thoracentesis with removal of 1 L of fluid. He had patchy airspace densities consistent with pneumonia. Echocardiogram revealed severe worsening of his left ventricular function. Mr. Paris denies any chest discomfort. PAST MEDICAL HISTORY: Paroxysmal atrial fibrillation since May 2012, coronary artery disease, stent placement, hyperlipidemia, hypertension, peripheral vascular disease, pancreatitis in 2005. PAST SURGICAL HISTORY: Appendectomy; cholecystectomy; 8 stents placed in the LAD; PTCA, and stent of the left peroneal artery; neck surgery; pacemaker insertion; hiatal hernia surgery. MEDICATIONS: 1. Amiodarone 200 mg q.a.m. 2. Eliquis 5 mg b.i.d. 3. Folic acid 1 mg daily. 4. Midodrine one tablet b.i.d. 5. Ambien p.r.n. ALLERGIES: PENICILLIN AND CEPHALEXIN. SOCIAL HISTORY: Smokes one pack per day. Initially, he saw me and he said that he had stopped in late 2018. He now admits that he continues to smoke. REVIEW OF SYSTEMS: A 10-point review of systems is otherwise unremarkable. PHYSICAL EXAMINATION: VITAL SIGNS: Blood pressure 114/78, pulse of 100. HEENT: PERRL. NECK: Supple. CHEST: Clear. CARDIAC: S1 and S2 normal without any S3 or S4. There are no murmurs. ABDOMEN: Normal bowel sounds without tenderness or organomegaly. EXTREMITIES: Reveal no clubbing, cyanosis, or edema. NEUROLOGIC: Grossly intact. LABORATORY DATA: EKG revealed ventricular pacing. Echocardiogram revealed ejection fraction of 15% to 20%, moderately enlarged right ventricle, pacemaker in the right ventricle, left atrial enlargement, severe mitral regurgitation, aortic valve sclerosis, trace tricuspid regurgitation. Hemoglobin 12.1, hematocrit 36.7, white count 7700, platelets 136,000. Sodium 134, potassium 3.8, chloride 106, carbon dioxide 18, BUN 24, creatinine 1.03. TSH is elevated at 7.7077. Cardiac enzymes are unremarkable. BNP 1344.4. IMPRESSION: 1. Increased shortness of breath, multifactorial. He does have evidence of pneumonia on chest CT, and probably he is having some degree of chronic obstructive pulmonary disease exacerbation. 2. Significant worsening of left ventricular function with ejection fraction falling from 40% to 45% in December 2019 to 15% to 20% at this time. He is 100% ventricularly pace looking at his pacemaker. Some reprogramming was performed and now he is not ventricularly paced at all. There was some degree of pacemaker mediated tachycardia. Certainly, prolonged ventricular pacing may have worsened his LV function. This will need to be closely watched. 3. Coronary artery disease with history of stent placement. 4. Status post dual-chamber pacemaker placement. 5. Paroxysmal atrial fibrillation with continued episodes at times on the pacemaker. 6. History of pericardial effusion after pacemaker placement. 7. Hypertension. 8. Hypercholesterolemia. 9. Smoker. 10. Positive family history. PLAN: The patient had his pacemaker reprogrammed and now is not ventricularly pacing. Left ventricular function has significantly worsened and as his blood pressure will allow, should be placed on JAZMIN inhibitors and carvedilol. Also consideration need to be given to placement of LifeVest prior to discharge. Job ID: [id number] MTDJudy
[2020-05-17] MEDS: Aztreonam 2 GM in Sodium Chloride 0.9% 100 ML IVPB SCH ×2 (02:20→14:42)
[2020-05-17] MEDS: Doxycycline 100 MG CAP PO SCH ×2 (08:36→20:52)
[2020-05-17] MEDS: Multivit, Therapeutic 1 TAB PO SCH (08:36)
[2020-05-17] MEDS: Lisinopril 2.5 MG TAB PO SCH (08:36)
[2020-05-17] MEDS: Midodrine HCl 5 MG TAB PO SCH ×2 (08:37→20:51)
[2020-05-17] MEDS: Amiodarone 200 MG TAB PO SCH (08:37)
[2020-05-17] MEDS: Saccharomyces boulardii 250 MG CAP PO SCH (08:37)
[2020-05-17] MEDS: guaiFENesin ER 600 MG TAB PO SCH ×2 (08:38→20:52)
[2020-05-17] MEDS: Famotidine 20 MG TAB PO SCH ×2 (08:38→20:52)
[2020-05-17] MEDS: Folic Acid 1 MG TAB PO SCH (08:38)
[2020-05-17] MEDS: Cyanocobalamin (Vitamin B-12) 1,000 MCG TAB PO SCH (08:38)
[2020-05-17] MEDS: Apixaban 5 MG TAB PO SCH ×2 (08:39→21:00)
--- NOTE | 2020-05-17 09:02 | PQF ---
CLINICAL DOCUMENTATION CLARIFICATION FORM: Dear Dr. Solis Date: 05/17/2020 Please exercise your independent, professional judgment in responding to the clarification form. Clinical indicators are provided on the bottom of this form for your review. Please check appropriate box(es) to clarify if the following diagnosis has been ruled in our ruled out: SEPSIS [ ] Ruled in diagnosis [ ] Continue to treat [ ] Resolved [ x] Ruled out diagnosis [ ] Cannot rule out diagnosis [ ] Other diagnosis [ ] Unable to determine In addition, please specify: Present on Admission (POA): [ ] Yes [ x] No [ ] Unable to determine For continuity of documentation, please document condition throughout progress notes and discharge summary. Thank You. CLINICAL INDICATORS - SIGNS / SYMPTOMS / LABS / RESULTS AND LOCATION IN EMR *ED 05/14: * Vital Signs: Pulse 101-108 RR 22-24 Temp (max) 97.8 * EKG shows, Rate of 104 electronic pacemaker * Pneumonia * Doubt over sepsis *LAB (EMR): WBC Neutrophils % Lactic Acid CRP 05/14 5.7 73.1 1.8 4.99 05/15- 7.1-7.7 73.0-73.7 *H&P 05/05 ([facility]): * The CT scan of the chest showed moderate large right pleural effusion with passive atelectasis along with right upper, righter middle, and left upper lobe interstitial and patchy air space densities consistent with pneumonia. * Patient in mild respiratory distress * Sepsis due to pneumonia * Toxic metabolic encephalopathy *Consultation 05/14 ([facility]): Dyspnea with pleural effusion, right, PND, and decrease in exercise capacity. This is most likely all related to his underlying effusion a component of otherwise not yet diagnosed heart failure. *Consultation 05/16 ([facility]): * Increased shortness of breath, multifactorial. * There was some degree of pacemaker mediated tachycardia. RISK FACTORS / RESULTS AND LOCATION IN EMR *ED 05/14: Pneumonia TREATMENTS / RESULTS AND LOCATION IN EMR *ED 05/14: Azithromycin IV, NS 1L IV, Ceftriaxone IV *H&P 05/14 ([facility]): He will be started on aztreonam along with doxycycline. Will check strep pneumonia and Legionella urinary antigen. *LAB (EMR): CBC 05/14-05/16, CRP 05/14, Lactic Acid 05/14 *Pulmonology Consultation 05/14 ([place]) Thank you, Sunitha CDS/Tattoo Artist Signature: Sunitha Manjarrez RN, CDS Phone #: [phone] [email or web address] This is a permanent part of the Medical Record [facility]
--- NOTE | 2020-05-17 10:27 | PRG ---
DATE OF SERVICE: 05/17/2020 SUBJECTIVE: Xavier Paris is a 75-year-old gentleman, status post thoracentesis, less short of breath. OBJECTIVE: VITAL SIGNS: Temperature 96, pulse 70, respiratory rate 18, saturations are 96% on room air, blood pressure 120/76. CHEST: Decreased breath sounds. No wheezing. CARDIAC: Normal S1 and S2. No gallops. ABDOMEN: No masses. ASSESSMENT AND PLAN: Congestive heart failure, transudative pleural effusion, status post dual-chamber pacemaker. Cardiology is following. Not much for Pulmonary to offer at this time. His EF is down to 20%. Prognosis remains guarded. Job ID: [id number]
--- NOTE | 2020-05-17 11:06 | PDOC.HOSPP ---
- Subjective Encounter Date: 05/17/20 Encounter Time: 11:04 Subjective: nosob,cough - Objective Vital Signs & Weight: Vital Signs (12 hours) Temp Pulse Resp BP Pulse Ox 05/17/20 08:36 70 05/17/20 08:00 96.6 F L 70 18 128/76 97 05/17/20 07:58 97 05/17/20 04:55 97.8 F 67 24 H 103/52 L 97 Weight Weight 153 lb 12.8 oz I&O: 05/16/20 05/17/20 05/18/20 06:59 06:59 06:59 Intake Total 480 120 Balance 480 120 Result Diagrams: 05/16/20 05:24 05/16/20 05:24 Hospitalist ROS - Medication Medications: Active Medications Generic Name Dose Route Start Last Admin Trade Name Freq PRN Reason Stop Dose Admin Acetaminophen 650 mg 05/14/20 13:27 05/14/20 14:56 Acetaminophen 325 Mg Tab PO 650 mg Q4H PRN Administration Headache/Fever/Mild Pain (1-3) Albuterol/Ipratropium 3 ml 05/14/20 13:31 05/15/20 06:17 Ipratropium/Albuterol Sulfate 3 Ml Neb NEB 3 ml Q4H PRN Administration SOB &/or Wheezing Amiodarone HCl 200 mg 05/15/20 09:00 05/17/20 08:37 Amiodarone 200 Mg Tab PO 200 mg QAM YANY Administration Apixaban 5 mg 05/14/20 21:00 05/17/20 08:39 Apixaban 5 Mg Tab PO 5 mg BID YANY Administration Cyanocobalamin 1,000 mcg 05/15/20 09:00 05/17/20 08:38 Cyanocobalamin (Vitamin B-12) 1,000 Mcg Tab PO 1,000 mcg DAILY YANY Administration Doxycycline Hyclate 100 mg 05/14/20 21:00 05/17/20 08:36 Doxycycline 100 Mg Cap PO 100 mg BID YANY Administration Famotidine 20 mg 05/14/20 21:00 05/17/20 08:38 Famotidine 20 Mg Tab PO 20 mg BID YANY Administration Folic Acid 1 mg 05/15/20 09:00 05/17/20 08:38 Folic Acid 1 Mg Tab PO 1 mg DAILY YANY Administration Guaifenesin 600 mg 05/14/20 21:00 05/17/20 08:38 Guaifenesin Er 600 Mg Tab PO 600 mg Q12HR YANY Administration Aztreonam 2 gm/ Sodium 100 mls @ 100 mls/hr 05/14/20 14:00 05/17/20 02:20 Chloride IVPB 100 mls 0200,1400 YANY Administration Lisinopril 2.5 mg 05/16/20 09:00 05/17/20 08:36 Lisinopril 2.5 Mg Tab PO 2.5 mg DAILY YANY Administration Melatonin 3 mg 05/14/20 13:31 05/15/20 20:08 Melatonin 3 Mg Tab PO 3 mg HS PRN Administration Insomnia Midodrine 2.5 mg 05/14/20 21:00 05/17/20 08:37 Midodrine Hcl 5 Mg Tab PO 2.5 mg BID YANY Administration Multivitamins 1 tab 05/15/20 09:00 05/17/20 08:36 Multivit, Therapeutic 1 Tab PO 1 tab DAILY YANY Administration Saccharomyces Boulardii 250 mg 05/15/20 09:00 05/17/20 08:37 Saccharomyces Boulardii 250 Mg Cap PO 250 mg DAILY YANY Administration Sodium Chloride 10 ml 05/14/20 21:00 05/17/20 08:40 Flush - Normal Saline 10 Ml Syringe IVF 10 ml Q12HR YANY Administration - Exam General Appearance: awake alert Neck: no JVD Heart: RRR, no murmur Respiratory - other findings: decreased bs,adverse on right Gastrointestinal: soft, non-tender, normal bowel sounds Extremities: no edema Hosp A/P (1) Acute systolic HF (heart failure) Code(s): I50.21 - ACUTE SYSTOLIC (CONGESTIVE) HEART FAILURE Status: Acute (2) Cardiomyopathy Code(s): I42.9 - CARDIOMYOPATHY, UNSPECIFIED Status: Acute Qualifiers: Cardiomyopathy type: ischemic Qualified Code(s): I25.5 - Ischemic cardiomyopathy (3) PNA (pneumonia) Code(s): J18.9 - PNEUMONIA, UNSPECIFIED ORGANISM Status: Acute Qualifiers: Lung location: unspecified part of lung (4) Chronic atrial fibrillation Code(s): I48.20 - CHRONIC ATRIAL FIBRILLATION, UNSPECIFIED Status: Chronic (5) Pleural effusion, right Code(s): J90 - PLEURAL EFFUSION, NOT ELSEWHERE CLASSIFIED Status: Acute (6) CAD (coronary artery disease) Code(s): I25.10 - ATHSCL HEART DISEASE OF [place] CORONARY ARTERY W/O ANG PCTRS Status: Chronic Qualifiers: Coronary Disease-Associated Artery/Lesion type: [place] artery [place] vs. transplanted heart: [place] heart Associated angina: without angina Qualified Code(s): I25.10 - Atherosclerotic heart disease of [place] coronary artery without angina pectoris - Plan rpt cxr-PA&Lat contantibx, lisinoril decideondiuretic/coreg post cxr review
--- NOTE | 2020-05-17 11:59 | RAD ---
2 views of the chest: 05/17/2020 COMPARISON: 05/15/2020 HISTORY: CHF, pneumonia FINDINGS: There is a dual lead transvenous pacing device. Anterior discectomy and fusion hardware of the cervical spine noted. There is blunting of the right costophrenic angle suggesting a small right pleural effusion. Mild hazy increased density noted within the adjacent right lower lobe which may signify associated infiltrate or volume loss. Mild increased linear interstitial density noted with pulmonary hyperinflation. No discrete pneumothorax, lobar consolidation, or alveolar edema. When compared to the 05/15/2020 examination, the right pleural effusion has increased in volume. IMPRESSION: Small but enlarging right pleural effusion. Mild adjacent parenchymal opacity in the righ t base.
--- NOTE | 2020-05-17 15:11 | PDOC.EVN ---
Event Note - Event Note Event Note: mild increase R pleural effusion, no cardiomegaly. start coreg/po lasix discuss with Dr Zhu
[2020-05-17] MEDS: Carvedilol 3.125 MG TAB PO SCH (17:13)
[2020-05-18] MEDS: Aztreonam 2 GM in Sodium Chloride 0.9% 100 ML IVPB SCH ×2 (03:13→14:33)
[2020-05-18] MEDS: Lisinopril 2.5 MG TAB PO SCH (08:51)
[2020-05-18] MEDS: Multivit, Therapeutic 1 TAB PO SCH (08:51)
[2020-05-18] MEDS: Doxycycline 100 MG CAP PO SCH ×2 (08:51→21:41)
[2020-05-18] MEDS: Midodrine HCl 5 MG TAB PO SCH ×2 (08:51→21:41)
[2020-05-18] MEDS: Famotidine 20 MG TAB PO SCH ×2 (08:51→21:41)
[2020-05-18] MEDS: Amiodarone 200 MG TAB PO SCH (08:52)
[2020-05-18] MEDS: Carvedilol 3.125 MG TAB PO SCH ×2 (08:52→17:36)
[2020-05-18] MEDS: Folic Acid 1 MG TAB PO SCH (08:52)
[2020-05-18] MEDS: Cyanocobalamin (Vitamin B-12) 1,000 MCG TAB PO SCH (08:52)
[2020-05-18] MEDS: Furosemide 40 MG TAB PO SCH (08:52)
[2020-05-18] MEDS: Saccharomyces boulardii 250 MG CAP PO SCH (08:52)
[2020-05-18] MEDS: Apixaban 5 MG TAB PO SCH ×2 (08:52→21:42)
[2020-05-18] MEDS: guaiFENesin ER 600 MG TAB PO SCH ×2 (08:52→21:42)
--- NOTE | 2020-05-18 10:22 | PRG ---
DATE OF SERVICE: 05/18/2020 SUBJECTIVE: This morning, he is awake, alert, and responsive. His x-ray yesterday showed a small right pleural effusion. OBJECTIVE: VITAL SIGNS: His temperature is 97, pulse 92, room air, blood pressure 120/78. CHEST: No wheezing. No crackles. CARDIAC: Normal S1 and S2. No gallops. ABDOMEN: No masses. IMPRESSION: Congestive heart failure, pleural effusion, stable. From pulmonary standpoint of view, again cardiac care, disposition home as per primary care physician. Job ID: [id number]
--- NOTE | 2020-05-18 10:23 | PDOC.HOSPP ---
- Subjective Encounter Date: 05/18/20 Encounter Time: 10:18 Subjective: walking in [place] without O2 - Objective Vital Signs & Weight: Vital Signs (12 hours) Temp Pulse Resp BP Pulse Ox 05/18/20 08:51 92 05/18/20 07:24 96 05/18/20 03:34 92 16 95 05/18/20 03:25 96 05/18/20 03:17 97.4 F L 61 18 124/78 96 05/18/20 00:00 66 18 Weight Weight 156 lb 3.2 oz I&O: 05/17/20 05/18/20 05/19/20 06:59 06:59 06:59 Intake Total 120 800 Balance 120 800 Result Diagrams: 05/16/20 05:24 05/16/20 05:24 Hospitalist ROS - Medication Medications: Active Medications Generic Name Dose Route Start Last Admin Trade Name Freq PRN Reason Stop Dose Admin Acetaminophen 650 mg 05/14/20 13:27 05/14/20 14:56 Acetaminophen 325 Mg Tab PO 650 mg Q4H PRN Administration Headache/Fever/Mild Pain (1-3) Albuterol/Ipratropium 3 ml 05/14/20 13:31 05/18/20 03:34 Ipratropium/Albuterol Sulfate 3 Ml Neb NEB 3 ml Q4H PRN Administration SOB &/or Wheezing Amiodarone HCl 200 mg 05/15/20 09:00 05/18/20 08:52 Amiodarone 200 Mg Tab PO 200 mg QAM YANY Administration Apixaban 5 mg 05/14/20 21:00 05/18/20 08:52 Apixaban 5 Mg Tab PO Not Given BID YANY Carvedilol 3.125 mg 05/17/20 17:00 05/18/20 08:52 Carvedilol 3.125 Mg Tab PO 3.125 mg BID-WM YANY Administration Cyanocobalamin 1,000 mcg 05/15/20 09:00 05/18/20 08:52 Cyanocobalamin (Vitamin B-12) 1,000 Mcg Tab PO 1,000 mcg DAILY YANY Administration Doxycycline Hyclate 100 mg 05/14/20 21:00 05/18/20 08:51 Doxycycline 100 Mg Cap PO 100 mg BID YANY Administration Famotidine 20 mg 05/14/20 21:00 05/18/20 08:51 Famotidine 20 Mg Tab PO 20 mg BID YANY Administration Folic Acid 1 mg 05/15/20 09:00 05/18/20 08:52 Folic Acid 1 Mg Tab PO 1 mg DAILY YANY Administration Furosemide 40 mg 05/18/20 07:30 05/18/20 08:52 Furosemide 40 Mg Tab PO 40 mg DAILY-AC YANY Administration Guaifenesin 600 mg 05/14/20 21:00 05/18/20 08:52 Guaifenesin Er 600 Mg Tab PO 600 mg Q12HR YANY Administration Aztreonam 2 gm/ Sodium 100 mls @ 100 mls/hr 05/14/20 14:00 05/18/20 03:13 Chloride IVPB 100 mls 0200,1400 YANY Administration Lisinopril 2.5 mg 05/16/20 09:00 05/18/20 08:51 Lisinopril 2.5 Mg Tab PO 2.5 mg DAILY YANY Administration Melatonin 3 mg 05/14/20 13:31 05/15/20 20:08 Melatonin 3 Mg Tab PO 3 mg HS PRN Administration Insomnia Midodrine 2.5 mg 05/14/20 21:00 05/18/20 08:51 Midodrine Hcl 5 Mg Tab PO 2.5 mg BID YANY Administration Multivitamins 1 tab 05/15/20 09:00 05/18/20 08:51 Multivit, Therapeutic 1 Tab PO 1 tab DAILY YANY Administration Saccharomyces Boulardii 250 mg 05/15/20 09:00 05/18/20 08:52 Saccharomyces Boulardii 250 Mg Cap PO 250 mg DAILY YANY Administration Sodium Chloride 10 ml 05/14/20 21:00 05/18/20 08:53 Flush - Normal Saline 10 Ml Syringe IVF 10 ml Q12HR YANY Administration Zolpidem Tartrate 5 mg 05/15/20 16:49 05/17/20 20:56 Zolpidem Tartrate 5 Mg Tab PO 5 mg HSPRN PRN Administration Insomnia - Exam General Appearance: awake alert Neck: no JVD Heart: RRR Respiratory: CTAB Gastrointestinal: soft, normal bowel sounds Extremities: no edema Hosp A/P (1) Acute systolic HF (heart failure) Code(s): I50.21 - ACUTE SYSTOLIC (CONGESTIVE) HEART FAILURE Status: Acute (2) Cardiomyopathy Code(s): I42.9 - CARDIOMYOPATHY, UNSPECIFIED Status: Acute Qualifiers: Cardiomyopathy type: ischemic Qualified Code(s): I25.5 - Ischemic cardiomyopathy (3) PNA (pneumonia) Code(s): J18.9 - PNEUMONIA, UNSPECIFIED ORGANISM Status: Acute Qualifiers: Lung location: unspecified part of lung (4) Chronic atrial fibrillation Code(s): I48.20 - CHRONIC ATRIAL FIBRILLATION, UNSPECIFIED Status: Chronic (5) Pleural effusion, right Code(s): J90 - PLEURAL EFFUSION, NOT ELSEWHERE CLASSIFIED Status: Acute (6) CAD (coronary artery disease) Code(s): I25.10 - ATHSCL HEART DISEASE OF [place] CORONARY ARTERY W/O ANG PCTRS Status: Chronic Qualifiers: Coronary Disease-Associated Artery/Lesion type: [place] artery [place] vs. transplanted heart: [place] heart Associated angina: without angina Qualified Code(s): I25.10 - Atherosclerotic heart disease of [place] coronary artery without angina pectoris - Plan cont lasix, lasic, lisinopril rpt echo pending pacer lead reposition plannd holding [employer]
--- NOTE | 2020-05-18 15:53 | CON ---
DATE OF CONSULTATION: 05/18/2020 REASON FOR CONSULTATION: Cardiomyopathy, pacemaker management. CONSULTED PHYSICIAN: Raimundo Barros MD HISTORY OF PRESENT ILLNESS: Mr. Paris is a 75-year-old gentleman, who presented to the hospital with shortness of breath, pneumonia, and generalized weakness with fever. He follows with Dr. Zhu for cardiac care. An echocardiogram was performed and found worsening ejection fraction, previously 40% to 45%, currently 15% to 20%. He has a history of coronary artery disease with multiple PCIs, atrial fibrillation requiring amiodarone and oral anticoagulation with Eliquis recently initiated. He also has a history of sick sinus syndrome, status post dual- chamber [employer] pacemaker implant in November 2019 that was complicated by pericardial effusion. Since then he is noted to have elevated capture thresholds. EP consultation is requested for possible lead revision as well as consideration for ICD, given his cardiomyopathy. Mr. Paris denies any current heart racing, palpitations, chest pain/pressure, syncope, stroke, or stroke-like symptoms. He does endorse shortness of breath and weakness that persists. PROBLEM LIST: 1. Paroxysmal atrial fibrillation diagnosed in May 2012, requiring amiodarone 200 mg for suppression. a. Oral anticoagulation with Eliquis. 2. Coronary artery disease, status post multiple PCIs. 3. Hyperlipidemia. 4. Hypertension. 5. Peripheral vascular disease. 6. Ongoing tobacco habituation. ALLERGIES: KEFLEX, PENICILLINS. HOME MEDICATIONS: 1. Amiodarone 200 mg p.o. q.a.m. 2. Eliquis 5 mg b.i.d. 3. Folic acid 1 mg daily. 4. Midodrine one tablet b.i.d. 5. Ambien as needed. SOCIAL HISTORY: Smokes one pack a day, ongoing. FAMILY HISTORY: Noncontributory, the patient does not recall. REVIEW OF SYSTEMS: A 12-point review of systems is negative except that listed above in the HPI. OBJECTIVE: VITAL SIGNS: Temperature 96.5 degrees Fahrenheit, pulse 92, blood pressure is 110/64, respirations 18, and oxygen 96% on room air. GENERAL: The patient is alert. He is oriented to person and place, moderately to situation, though appears to be a fairly poor historian and may have some cognitive impairment starting. HEENT: He is normocephalic and atraumatic. His sclerae are anicteric. EOMs are intact. Oral mucosa is moist and pink with adequate dentition. NECK: Supple without jugular venous distention. There is no lymphadenopathy, without carotid bruit bilaterally. HEART: Rate is with crisp S1 and S2. PMI nondisplaced. There is a right-sided precordial pacemaker, site is without reaction. LUNGS: Diminished in the bases, otherwise clear throughout. Respirations are even and unlabored with good bilateral excursion. ABDOMEN: Soft and nontender without palpable masses. Hepatojugular reflux is negative. EXTREMITIES: Warm and dry to touch. Well perfused without clubbing or edema. NEUROLOGIC: Grossly intact and nonfocal. Gait was not assessed. LABORATORY DATA: Hematology; hemoglobin 12.1, hematocrit 36.7, platelet count is 136. Chemistry; potassium 3.8, creatinine 1.03, magnesium 1.7. TSH 7.7. Liver enzymes within normal ranges. Chest x-ray on 05/17 showed worsening right pleural effusion, increased in volume. Telemetry and EKG initially showed ventricular pacing with a ventricular rate of 104 beats per minute. Subsequent telemetry strips show sinus rhythm with a mild first-degree AV block and a significant reduction in ventricular pacing. [place] QRS is 112 millisecond. There is an underlying left anterior fascicular block. HI interval is 222 millisecond. DEVICE CHECK: The patient has a [employer] MRI compatible dual-chamber pacemaker, implant date is 12/23/2019. Battery voltage is adequate. Right atrial capture threshold is elevated, currently programmed at 6 V at 0.4 milliseconds. Sensing is adequate. Lead impedance ranges are stable. RV lead function is stable. Current mode is DDDR with a lower rate limit of 60, max track 115 beats per minute. High-grade RV pacing of 100% was seen, AP 37%, AF burden is low at less than 1%. Device was reprogrammed with AF suppression turned off, atrial lead output was adjusted and changed to 6 V at 1.2 milliseconds, PAV set to 250 milliseconds, PMT detection was set to 100 beats per minute, PVAB 80 milliseconds, PVARP 350 milliseconds. These programming changes resulted in minimizing ventricular pacing. IMPRESSION: 1. Acute on chronic congestive systolic heart failure. 2. Ischemic cardiomyopathy. 3. Pneumonia. 4. Persistent atrial fibrillation. 5. Right-sided pleural effusion. 6. Elevated threshold of right atrial lead, preexisting dual-chamber pacemaker. PLAN AND RECOMMENDATIONS: Mr. Paris is a 75-year-old gentleman, whom we find with worsening left ventricular ejection fraction. It is previously moderately reduced at 40% to 45%, now found to be 15% to 20%. There is concern that this is related to his high-grade RV pacing and a repeat echocardiogram is planned, now that he is no longer RV pacing. I had a long discussion with him about his pacemaker function and the need for lead revision in addition to the potential need for a defibrillator down the road if his LVEF remains severely reduced. If his ejection fraction shows it is improved without RV pacing, simple atrial lead revision would be adequate to address his right atrial lead thresholds. At this point, the lead is functional, but will wear down the battery status quite quickly and since it is a new implant, lead revision should be fairly simple. Alternatively, if his ejection fraction remains low, I would recommend three months of guideline directed medical therapy with protection of a LifeVest, and then if his EF remains low after 3 months, consider upgrade to an ICD concurrent with a lead revision to prevent reoperation. Mr. Paris voiced understanding, but he will likely need reinforcement of his options, I am not sure he was understanding his situation. I would recommend keeping him on amiodarone and Eliquis for now. The history of his arrhythmia status is fairly unknown and he is a poor historian in this regard. I am not sure what other interventions he has had, cardioversions or attempted ablation. Thank you for allowing me to participate in the care of this patient. We will continue to follow and anticipate the results of repeat echocardiogram as mentioned by Cardiology. Job ID: [id number] [facility]
[2020-05-19] MEDS: Aztreonam 2 GM in Sodium Chloride 0.9% 100 ML IVPB SCH ×2 (01:38→14:09)
[2020-05-19 04:56] LABS: #Eosinphils 0.1 thou/uL (0.0-0.7); #Lymphocytes 1.2 thou/uL (1.20-3.40); #Monocytes 0.5 thou/uL (0.11-0.59); #Neutrophils 3.2 thou/uL (1.40-6.50); %Basophils 0.2 % (0.0-1.0); %Eosinophils 1.5 % (0.0-10.0); %Lymphocytes 24.7 % (21.0-51.0); %Monocytes 10.2 % (0.0-10.0); %Neutrophils 63.3 % (42.0-75.0); Hemoglobin 11.6 g/dL (14.0-18.0); Mean Corpuscular HGB CONC 32.4 g/dL (32.0-36.0); Mean Corpuscular Hemoglobin 32.7 pg (27.0-31.0); Mean Platelet Volume 8.9 fL (7.4-10.4); Platelet Count 160 thou/uL (130-400); RBC Distribution Width 13.4 % (11.5-14.5); Red Blood Cell (RBC) Count 3.54 mill/uL (4.70-6.10)
[2020-05-19] MEDS: Acetaminophen 325 MG TAB PO PRN (05:08)
[2020-05-19 05:28] LABS: Anion Gap 15 mmol/L (10-20); BUN (Urea Nitrogen) 23 mg/dL (8.4-25.7); Calc. Creatinine Clearance 75 mL/min (70-130); Calcium 8.2 mg/dL (7.8-10.44); Carbon Dioxide 19 mmol/L (23-31); Chloride 105 mmol/L (98-107); Estimated GFR-MDRD 87; Glucose 91 mg/dL (83-110); Potassium 3.8 mmol/L (3.5-5.1); Sodium 135 mmol/L (136-145)
[2020-05-19] MEDS ORDERED: Spironolactone 25 MG TAB PO SCH (08:00)
[2020-05-19] MEDS: Famotidine 20 MG TAB PO SCH (08:46)
[2020-05-19] MEDS: Doxycycline 100 MG CAP PO SCH (08:46)
[2020-05-19] MEDS: Lisinopril 2.5 MG TAB PO SCH (08:46)
[2020-05-19] MEDS: Cyanocobalamin (Vitamin B-12) 1,000 MCG TAB PO SCH (08:46)
[2020-05-19] MEDS: Carvedilol 3.125 MG TAB PO SCH ×2 (08:46→16:55)
[2020-05-19] MEDS: Midodrine HCl 5 MG TAB PO SCH (08:47)
[2020-05-19] MEDS: Multivit, Therapeutic 1 TAB PO SCH (08:47)
[2020-05-19] MEDS: Apixaban 5 MG TAB PO SCH (08:47)
[2020-05-19] MEDS: Furosemide 40 MG TAB PO SCH (08:47)
[2020-05-19] MEDS: Saccharomyces boulardii 250 MG CAP PO SCH (08:47)
[2020-05-19] MEDS: Amiodarone 200 MG TAB PO SCH (08:47)
[2020-05-19] MEDS: guaiFENesin ER 600 MG TAB PO SCH (08:47)
[2020-05-19] MEDS: Folic Acid 1 MG TAB PO SCH (08:47)
--- NOTE | 2020-05-19 10:06 | PRG ---
DATE OF SERVICE: 05/19/2020 SUBJECTIVE: This morning, he says he is feeling better, he is less short of breath. OBJECTIVE: VITAL SIGNS: His temperature is 96, pulse 96, sats 97% on room air, blood pressure . CHEST: No wheezing, no crackles. CARDIAC: Normal S1, S2, no gallops. ABDOMEN: No masses. ASSESSMENT: Status post thoracentesis, respiratory failure, congestive heart failure. Echo, EF is 20%. PLAN: Pulmonary manrique stable enough to be discharged home for tomorrow by Cardiology. Most of his problems appear to be cardiac in origin. Job ID: [id number]
--- NOTE | 2020-05-19 15:46 | DIS ---
DATE OF ADMISSION: 05/14/2020 DATE OF DISCHARGE: 05/19/2020 PRIMARY CARE PROVIDER: Trey Rodriguez MD. DISPOSITION: Discharged home. FINAL DIAGNOSES: [id number] systolic heart failure, severe cardiomyopathy coronary artery disease, chronic atrial fibrillation, anticoagulation, possible pneumonia. DISCHARGE MEDICINES: 1. Eliquis 5 mg twice a day. 2. Amiodarone 200 mg a day. 3. Spironolactone 25 mg a day. 4. Multivitamin one a day. 5. Zestril 2.5 mg a day. 6. Lasix 40 mg a day. 7. Folic acid 1 mg a day. 8. Doxycycline 100 mg p.o. b.i.d. for 5 days. Cyanocobalamin 1000 mg daily. 9. Coreg 3.125 mg p.o. b.i.d. ALLERGIC: To penicillins and cephalexin. DIET: Heart-healthy, low-salt. CODE STATUS: Full. PENDING AT TIME OF DISCHARGE: Nothing. CONSULTATIONS WHILE IN THE HOSPITAL: Dr. Corbin Douglas, pulmonology oil agent; Dr. Glen Zhu, retail assistant; Dr. Raimundo Barros, electrophysiology. PROCEDURES DONE WHILE IN THE HOSPITAL: Thoracentesis of right thorax. HOSPITAL COURSE: The patient admitted to the hospitalist service at [facility] with shortness of breath. He was suspected initially of having pneumonia, right pleural effusion, toxic encephalopathy, hyponatremia, chronic atrial fibrillation, etc. His initial lab white count 5.7 with no left shift, hemoglobin 14.1, platelet count 170,000. Initial chemistries: Sodium 134, potassium 4.2, BUN and creatinine normal. Bilirubin 1.5, ALT normal. BNP 1344. Troponins 0.015. The patient was put in the hospital on antibiotics, broad spectrum, aztreonam and doxycycline due to his penicillin and cephalosporin allergy. On 05/15 underwent thoracentesis with removal of 1000 mL of light free fluid. Echocardiogram done the same day revealed an EF of 15-20%, which is severely decreased from previous, which was about 45%. Followup chest x-ray after thoracentesis revealed a pacemaker in the left upper chest. Lung hanna grossly clear with some what appears to be residual atelectasis in the right lung hanna from the compression from the pleural fluid. No evidence for pneumonia. The cytology on the fluid was no malignant cells. The patient was started on IV diuresis. Lisinopril started for severe cardiomyopathy. Dr. Zhu was consulted on 05/16 pacemaker was at that point, consistently ventricular pacing. Dr. Zhu had it interrogated and then reprogrammed. The patient was therefore in sinus rhythm after that. Followup echocardiogram done now reveals that the LVF is severely depressed. The patient has been continued on his amiodarone and his Eliquis, Coreg and Lasix. Add spironolactone and JAZMIN have been added. There has been discussion of lead placement. It has been decided, however, at this point he is compensated from a heart failure standpoint. He is going to be discharged. Followup in 3-7 days with his PCP. Follow up with Dr. Zhu to ascertain whether his cardiac function improves with therapy or he needs a pacemaker defibrillator instead of a lead replacement in the future. Currently his vital signs are within normal limits. His cardiorespiratory exam is really normal with clear chest and regular rate and rhythm. As mentioned before, he is being discharged on multiple new medicines. Prescriptions have been written. Job ID: [id number]
[2020-05-19 15:47] VITALS: BP 120/83; TEMP 96.1
--- NOTE | 2020-05-19 16:28 | PDOC.EP ---
- Subjective Date: 05/19/20 Time: 08:00 Interval History: follow-up for potential pacemaker lead revision versus ICD consideration: patient feels fair today and anticipate discharge home later today. He denies any heart racing, palpitations, chest pain, passing out, dizziness, stroke or stroke-like symptoms. He continues to have some shortness of breath and weakness but feels this is progressing. He denies any fevers - Objective Allergies/Adverse Reactions: Allergies Allergy/AdvReac Type Severity Reaction Status Date / Time cephalexin monohydrate Allergy Verified 03/18/20 10:29 [From Keflex] Penicillins Allergy Verified 03/18/20 10:29 Current Medications Acetaminophen (Acetaminophen 325 Mg Tab) 650 mg PO Q4H PRN PRN Reason: Headache/Fever/Mild Pain (1-3) Last Admin: 05/19/20 05:08 Dose: 650 mg Documented by: Albuterol/Ipratropium (Ipratropium/Albuterol Sulfate 3 Ml Neb) 3 ml NEB Q4H PRN PRN Reason: SOB &/or Wheezing Last Admin: 05/18/20 03:34 Dose: 3 ml Documented by: Amiodarone HCl (Amiodarone 200 Mg Tab) 200 mg PO QAM [facility] Last Admin: 05/19/20 08:47 Dose: 200 mg Documented by: Apixaban (Apixaban 5 Mg Tab) 5 mg PO BID [facility] Last Admin: 05/19/20 08:47 Dose: 5 mg Documented by: Bisacodyl (Bisacodyl 10 Mg Supp) 10 mg [place] DAILYPRN PRN PRN Reason: Constipation Calcium Carbonate (Calcium Carbonate 500 Mg Chewtab) 1,000 mg PO Q4H PRN PRN Reason: Heartburn or Indigestion Carvedilol (Carvedilol 3.125 Mg Tab) 3.125 mg PO BID-[facility] Last Admin: 05/19/20 08:46 Dose: 3.125 mg Documented by: Cyanocobalamin (Cyanocobalamin (Vitamin B-12) 1,000 Mcg Tab) 1,000 mcg PO DAILY [facility] Last Admin: 05/19/20 08:46 Dose: 1,000 mcg Documented by: Doxycycline Hyclate (Doxycycline 100 Mg Cap) 100 mg PO BID [facility] Last Admin: 05/19/20 08:46 Dose: 100 mg Documented by: Famotidine (Famotidine 20 Mg Tab) 20 mg PO BID [facility] Last Admin: 05/19/20 08:46 Dose: 20 mg Documented by: Folic Acid (Folic Acid 1 Mg Tab) 1 mg PO DAILY [facility] Last Admin: 05/19/20 08:47 Dose: 1 mg Documented by: Furosemide (Furosemide 40 Mg Tab) 40 mg PO DAILY-AC [facility] Last Admin: 05/19/20 08:47 Dose: 40 mg Documented by: Guaifenesin (Guaifenesin Er 600 Mg Tab) 600 mg PO Q12HR [facility] Last Admin: 05/19/20 08:47 Dose: 600 mg Documented by: Aztreonam 2 gm/ Sodium (Chloride) 100 mls @ 100 mls/hr IVPB 0200,1400 [facility] Last Admin: 05/19/20 14:09 Dose: 100 mls Documented by: Lisinopril (Lisinopril 2.5 Mg Tab) 2.5 mg PO DAILY [facility] Last Admin: 05/19/20 08:46 Dose: 2.5 mg Documented by: Melatonin (Melatonin 3 Mg Tab) 3 mg PO HS PRN PRN Reason: Insomnia Last Admin: 05/15/20 20:08 Dose: 3 mg Documented by: Midodrine (Midodrine Hcl 5 Mg Tab) 2.5 mg PO BID [facility] Last Admin: 05/19/20 08:47 Dose: 2.5 mg Documented by: Miscellaneous Medication (Electrolyte Replacement Protocol) 0 each FS ASDIR PRN; Protocol PRN Reason: ELECTROLYTE REPLACEMENT Multivitamins (Multivit, Therapeutic 1 Tab) 1 tab PO DAILY [facility] Last Admin: 05/19/20 08:47 Dose: 1 tab Documented by: Saccharomyces Boulardii (Saccharomyces Boulardii 250 Mg Cap) 250 mg PO DAILY [facility] Last Admin: 05/19/20 08:47 Dose: 250 mg Documented by: Senna/Docusate Sodium (Senokot S 8.6-50 Mg Tab) 2 tab PO BIDPRN PRN PRN Reason: Constipation Sodium Chloride (Flush - Normal Saline 10 Ml Syringe) 10 ml IVF Q12HR [facility] Last Admin: 05/19/20 08:48 Dose: 10 ml Documented by: Sodium Chloride (Flush - Normal Saline 10 Ml Syringe) 10 ml IVF PRN PRN PRN Reason: Saline Flush Spironolactone (Spironolactone 25 Mg Tab) 25 mg PO QAM-WM YANY Last Admin: 05/19/20 08:47 Dose: 25 mg Documented by: Zolpidem Tartrate (Zolpidem Tartrate 5 Mg Tab) 5 mg PO HSPRN PRN PRN Reason: Insomnia Last Admin: 05/17/20 20:56 Dose: 5 mg Documented by: Vital Signs & Weight: Vital Signs Temp Pulse Resp BP Pulse Ox 05/19/20 15:46 96.1 F L 60 16 120/83 97 05/19/20 12:00 96.8 F L 62 17 118/72 98 05/19/20 08:46 96 05/19/20 08:00 96.2 F L 61 18 109/61 97 Weight 158 lb 8 oz I/O: I/O 05/18/20 05/19/20 05/20/20 06:59 06:59 06:59 Intake Total 800 1180 Balance 800 1180 - Physical Exam General: alert & oriented x3, appears well, speech clear HEENT: mucus membranes moist, normocephaly Neck: supple neck, no JVD/HJR, no lymphadenopathy Cardiology: regular rate and rhythm, no murmur, PMI nondisplaced Lungs: clear to auscultation, no wheeze, rales, rhonchi, decreased breath sounds Neurology: cranial nerve 2-12 intact, grossly intact, no lateralizing findings Abdomen: unremarkable, active bowel sounds, no pulsations/bruits Extremities: dry, strong pulses, warm Skin: device site stable w/o swelling - Labs Result Diagrams: 05/19/20 04:26 05/19/20 04:26 - EKG Interpretation EKG Method: Telemetry EKG shows: Sinus rhythm ( AP, VS) - Assessment/Plan Assessment/Plan: 1. paroxysmal atrial fibrillation - continue amiodarone 200 mg daily - continue Eliquis 5 mg p.o. b.i.d. 2. acute on chronic congestive systolic heart failure - per cardiology - possible declining in LVEF related to high-grade RV pacing recently 3. pneumonia with right-sided pleural effusion 4. dual-chamber pacemaker, [employer] /[employer] - right atrial lead requires revision with elevated thresholds. Remains functional programming changes to his pacemaker for able to stop his high-grade RV pacing. his ejection fraction was reassessed without RV pacing but remains severely depressed approximately 15%. At this point his right atrial lead remains functional albeit with higher thresholds. Long-term this will require revision but I would like to wait and potentially revise the right atrial lead and upgrade to ICD at the same time if he is indeed an ICD candidate. cardiomyopathy is newly found and he will require 3 months of optimize medication therapy with a repeat echocardiogram documenting LVEF less than or equal to 35% before ICD consideration could be made unless sustained ventricular tachyarrhythmias are seen. His QRS is narrow which does not make him a candidate for a Bi V device, but if he is felt to continue to have high-grade RV pacing this could be a consideration. okay for DC by EP. Follow-up will be arranged in 2-3 months to begin preparation for lead revision and possible ICD upgrade
--- NOTE | 2020-05-22 09:57 | DIS ---
DATE OF ADMISSION: 05/14/2020 DATE OF DISCHARGE: ADDENDUM: TIME SPENT: 35 minutes were spent preparing this discharge. Job ID: [id number]
--- NOTE | 2020-05-22 12:49 | EKG ---
Test Reason : Blood Pressure : / mmHG Vent. Rate : 063 BPM Atrial Rate : 063 BPM P-R Int : 222 ms QRS Dur : 112 ms QT Int : 508 ms P-R-T Axes : 077 -78 -78 degrees QTc Int : 519 ms Sinus rhythm with 1st degree A-V block Possible Left atrial enlargement Left anterior fascicular block Septal infarct , age undetermined T wave abnormality, consider inferior ischemia T wave abnormality, consider anterolateral ischemia Prolonged QT Abnormal ECG Confirmed by SHAHZAD CAMPOVERDE MD ([id number]) on 05/22/2020 12:49:39 PM Referred By: CINDY Confirmed By:SHAHZAD CAMPOVERDE MD
== END 2020-05-19 18:00 | disposition home or self-care (01) | DRG 291 ==
LOC: ERS 09:04 → T4-A 10:37 → 2NO 05-16 13:28
PROVIDERS: ADMIT Internal Medicine; ATTEND Internal Medicine
PROC: 0W993ZZ Drainage of Right Pleural Cavity, Percutaneous Approach (ICD-10-PCS; principal; 2020-05-15)
DX: I11.0 Hypertensive heart disease with heart failure (principal); G92 Toxic encephalopathy; J96.90 Respiratory failure, unspecified, unspecified whether with hypoxia or hypercapnia; J18.9 Pneumonia, unspecified organism; E87.1 Hypo-osmolality and hyponatremia; J90 Pleural effusion, not elsewhere classified; I48.19 Other persistent atrial fibrillation; I50.23 Acute on chronic systolic (congestive) heart failure; I25.10 Atherosclerotic heart disease of native coronary artery without angina pectoris; M19.90 Unspecified osteoarthritis, unspecified site; I73.9 Peripheral vascular disease, unspecified; I49.5 Sick sinus syndrome; E83.42 Hypomagnesemia; R94.5 Abnormal results of liver function studies; Z90.49 Acquired absence of other specified parts of digestive tract; Z95.0 Presence of cardiac pacemaker; Z98.890 Other specified postprocedural states; Z88.0 Allergy status to penicillin; Z88.1 Allergy status to other antibiotic agents; Z79.01 Long term (current) use of anticoagulants; Z87.891 Personal history of nicotine dependence; Z87.11 Personal history of peptic ulcer disease; Z95.5 Presence of coronary angioplasty implant and graft; Z95.820 Peripheral vascular angioplasty status with implants and grafts; Z20.828 Contact with and (suspected) exposure to other viral communicable diseases
CPT/HCPCS: 36415; 36416; 70450; 71045; 71046; 71250; 80048; 80053; 82945; 83605; 83615; 83735; 83880; 84100; 84157; 84443; 84484; 85025; 85060; 85610; 85730; 86140; 87040; 87070; 87116; 87205; 87206; 87449; 87899; 88112; 88305; 89051; 93005; 93010; 93306; 94640; 94760; 96365; 96367; 96375; J0456; J0696; J1940; J3475; J3490; J7620; U0002

== ENCOUNTER 2020-05-30 14:06 | Inpatient (IN) | payer MEDICARE, OTHER ==
[2020-05-30] MEDS ORDERED: Bisacodyl 5 MG TAB PO PRN (16:25)
[2020-05-30 17:42] LABS: Troponin I Less than 0.010 ng/mL (< 0.028)
--- NOTE | 2020-05-30 17:49 | HP ---
PRIMARY CARE PROVIDER: Trey Rodriguez MD CHIEF COMPLAINT: Generalized weakness. HISTORY OF PRESENT ILLNESS: Mr. Paris is a pleasant 75-year-old gentleman who was seen at [facility] on May 30, 2020. He was hospitalized at this facility from May 14 to of this year for systolic congestive heart failure exacerbation, severe cardiomyopathy, and possible pneumonia. He had thoracentesis done during that hospitalization for right-sided pleural effusion. His pacemaker was reprogrammed during that hospitalization. He was found to have a severely depressed left ventricular ejection fraction. He has a LifeVest. He reports that a few days after going home, he started having generalized weakness. He reports a sensation of lightheadedness when he stands up. He reports that he feels like he is going to fall down. He reports that initially he had lower extremity edema, which subsequently improved. He denies any fevers or chills. He denies any cough. He denies any nausea or vomiting. He presented to the emergency room at [facility] with above complaints. He was scheduled to see his industrial design intern, Dr. Zhu earlier today, but did not keep that appointment. He had the pacemaker interrogated in the emergency room at [facility]. They reportedly adjusted the capture rate of 50 beats per minute and set at 60. The emergency room physician at [facility] discussed the patient with Dr. Zhu's office and transferred the patient over to the emergency room in [place] for admission to the hospital. In the emergency room at [place], the patient was found to be hypotensive. He received 500 mL normal saline bolus and was referred to hospitalist service for admission to the hospital. REVIEW OF SYSTEMS: All systems were reviewed and found to be negative except for the pertinent positives mentioned above. PAST MEDICAL HISTORY: Atrial fibrillation, pancreatitis, H pylori infection, coronary artery disease, peptic ulcer disease, and osteoarthritis. PAST SURGICAL HISTORY: Appendectomy, cholecystectomy, bilateral hernia repair, neck surgery, lumbar surgery, EGD, ERCP with sphincterotomy for gallstone pancreatitis, and pacemaker placement. FAMILY HISTORY: Significant for diabetes mellitus. SOCIAL HISTORY: The patient is a former smoker. He denies alcohol use or recreational drug use. CODE STATUS: I discussed his code status. He is full code. ALLERGIES: CEPHALEXIN AND PENICILLIN. HOME MEDICATIONS: 1. Eliquis 5 mg 2 times a day. 2. Amiodarone 200 mg daily. 3. Spironolactone 25 mg daily. 4. Multivitamins one tablet daily. 5. Lisinopril 2.5 mg daily. 6. Lasix 40 mg daily. 7. Folic acid 1 mg daily. 8. Coreg 3.125 mg 2 times a day. PHYSICAL EXAMINATION: GENERAL: Mr. Paris is awake and alert, not in acute distress. VITAL SIGNS: His current blood pressure is 110/66, pulse 53, respiratory rate 15, and oxygen saturation 99% on room air. He is afebrile. EYES: The patient has scleral icterus. No conjunctival pallor. ENT: Moist mucosal membranes. No oropharyngeal erythema or exudates. NECK: Supple, nontender. Trachea is midline. RESPIRATORY: Accessory muscles of breathing are not active. Chest wall movements are symmetric bilaterally. Lungs are clear to auscultation, without wheeze, rhonchi, or crepitations. CARDIOVASCULAR: S1 and S2 are heard. Regular. Peripheral pulses palpable. ABDOMEN: Soft, nontender. Bowel sounds are heard. NEUROLOGIC: Cranial nerves 2 through 12 are intact. MUSCULOSKELETAL: Power is 5/5 in all 4 extremities. SKIN: No rashes. EXTREMITIES: No lower extremity edema. LYMPHATIC: No cervical lymphadenopathy. PSYCHIATRIC: Normal mood. Normal affect. The patient is oriented to person, place, and time. LABORATORY DATA AND INVESTIGATIONS: Reviewed. I reviewed his 12-lead electrocardiogram, which shows electronic atrial paced rhythm, no ST changes to suggest an acute coronary syndrome. I also reviewed his chest x-ray, which does not show any pulmonary infiltrates or pulmonary edema. He has a normal CBC, normal potassium, decreased sodium of 135, normal anion gap, creatinine elevated at 1.69, last known creatinine was 0.86 on May 19, 2020, elevated total bilirubin of 1.5, normal AST, normal ALT, and normal alkaline phosphatase. BNP is elevated at 273.6. Last known BNP was 1344 on May 14, 2020. TSH was elevated at 8.4346. Troponin I is less than 0.010. Urinalysis is normal. ASSESSMENT AND PLAN: Mr. Paris is a pleasant 75-year-old gentleman who was seen at [facility] on May 30, 2020. His problem list includes: 1. Generalized weakness: This is most likely secondary to hypotension in the context of multiple antihypertensives. The patient received a bolus of normal saline and reports improvement. He has markedly decreased left ventricular ejection fraction. For now, he will be monitored in the IM. I will hold his antihypertensives tonight and decide about restarting them in the morning. I will also have his orthostatic vitals, cortisol level, and free T4 checked. 2. Chronic systolic congestive heart failure: His pacemaker has been adjusted. I will await Cardiology opinion. I will start him on furosemide in the morning if possible. 3. Atrial fibrillation: Continue apixaban and amiodarone. 4. History of peptic ulcer disease: Stable. Many thanks for allowing me to participate in your patient's care. Please feel free to contact me with any questions or concerns. LEVEL OF RISK: High. LEVEL OF COMPLEXITY: High. ESTIMATED LENGTH OF STAY IN THE HOSPITAL: Greater than 2 midnights. Job ID: [id number]
[2020-05-30 19:21] LABS: Base Excess-Venous 0.9 mmol/L (-2.0 to 3.0); Bicarbonate (HCO3v) 28.8 mmol/L (22.0-28.0); CO2 Tension (PvCO2) 56.9 mmHg (40.0-50.0); Calcium, Ionized 1.11 mmol/L (See Comments:); Chloride 97 mmol/L (98-107); Hemoglobin - Calc 16.9 g/dL (14.0-18.0); Sodium 137 mmol/L (138-145); T. Carbon Dioxide 30.6 mmol/L (22.0-28.0); vO2 Saturation-calc 59.7 % (60.0-85.0)
[2020-05-30 20:15] VITALS: BMI 21.2
[2020-05-30 20:43] LABS: Troponin I Less than 0.010 ng/mL (< 0.028)
[2020-05-30] MEDS: Acetaminophen 325 MG TAB PO PRN (21:35)
[2020-05-30] MEDS: Apixaban 5 MG TAB PO SCH (21:35)
[2020-05-31 04:43] LABS: #Basophils 0.1 thou/uL (0.0-0.2); #Eosinphils 0.1 thou/uL (0.0-0.7); #Lymphocytes 1.8 thou/uL (1.20-3.40); #Monocytes 0.5 thou/uL (0.11-0.59); %Eosinophils 1.5 % (0.0-10.0); %Lymphocytes 33.5 % (21.0-51.0); %Monocytes 8.3 % (0.0-10.0); %Neutrophils 55.7 % (42.0-75.0); Hemoglobin 14.2 g/dL (14.0-18.0); Mean Corpuscular HGB CONC 33.9 g/dL (32.0-36.0); Mean Platelet Volume 7.8 fL (7.4-10.4); Platelet Count 202 thou/uL (130-400); RBC Distribution Width 12.4 % (11.5-14.5); Red Blood Cell (RBC) Count 4.17 mill/uL (4.70-6.10); White Blood Cell (WBC) Count 5.3 thou/uL (4.8-10.8)
[2020-05-31 05:00] LABS: Anion Gap 14 mmol/L (10-20); BUN (Urea Nitrogen) 37 mg/dL (8.4-25.7); Calc. Creatinine Clearance 44 mL/min (70-130); Calcium 8.7 mg/dL (7.8-10.44); Carbon Dioxide 22 mmol/L (23-31); Chloride 99 mmol/L (98-107); Estimated GFR-MDRD 54; Glucose 87 mg/dL (83-110); Sodium 131 mmol/L (136-145)
[2020-05-31] MEDS ORDERED: FLU VACC QS2020-21(65YR UP)/PF 240 MCG/0.7 ML SYRINGE IM ONE (09:00)
[2020-05-31] MEDS ORDERED: Sodium Chloride 0.9% 1,000 ML IV SCH (09:00)
[2020-05-31] MEDS: Spironolactone 25 MG TAB PO SCH (09:24)
[2020-05-31] MEDS: Multivit, Therapeutic 1 TAB PO SCH (09:24)
[2020-05-31] MEDS: Cyanocobalamin (Vitamin B-12) 1,000 MCG TAB PO SCH (09:24)
[2020-05-31] MEDS: Folic Acid 1 MG TAB PO SCH (09:24)
[2020-05-31] MEDS: Amiodarone 200 MG TAB PO SCH (09:24)
[2020-05-31] MEDS: Apixaban 5 MG TAB PO SCH (09:26)
--- NOTE | 2020-05-31 17:13 | PDOC.HOSPP ---
- Subjective Encounter Date: 05/31/20 Encounter Time: 17:13 Subjective: Patient seen for follow-up regarding hypotension. He reports feeling better. Denies chest pain or shortness of breath. - Objective Vital Signs & Weight: Vital Signs (12 hours) Temp Pulse Resp BP BP BP BP 05/31/20 16:12 97.6 F 55 L 16 131/88 05/31/20 11:40 97.5 F L 57 L 16 88/51 L 05/31/20 09:05 103/60 105/59 L 69/45 L 05/31/20 08:15 97.8 F 56 L 16 84/53 L Pulse Ox 05/31/20 16:12 96 05/31/20 11:40 95 05/31/20 09:05 05/31/20 08:15 96 Weight Weight 139 lb 4.8 oz I&O: 05/30/20 05/31/20 06/01/20 06:59 06:59 06:59 Intake Total 240 Output Total 480 Balance -240 Result Diagrams: 05/31/20 03:50 05/31/20 03:50 Additional Labs: I reviewed patient's labs and MAR EKG Reviewed by me: Yes (Telemetry: NSR) Hospitalist ROS - Review of Systems Cardiovascular: denies: chest pain, palpitations, orthopnea, paroxysmal noc. dyspnea, edema, light headedness Gastrointestinal: denies: nausea, vomiting, abdominal pain, diarrhea, constipation, melena, hematochezia - Medication Medications: Active Medications Generic Name Dose Route Start Last Admin Trade Name Freq PRN Reason Stop Dose Admin Acetaminophen 650 mg 05/30/20 16:25 05/30/20 21:35 Acetaminophen 325 Mg Tab PO 650 mg Q4H PRN Administration Headache/Fever/Mild Pain (1-3) Amiodarone HCl 200 mg 05/31/20 09:00 05/31/20 09:24 Amiodarone 200 Mg Tab PO 200 mg QAM YANY Administration Cyanocobalamin 1,000 mcg 05/31/20 09:00 05/31/20 09:24 Cyanocobalamin (Vitamin B-12) 1,000 Mcg Tab PO 1,000 mcg DAILY YANY Administration Folic Acid 1 mg 05/31/20 09:00 05/31/20 09:24 Folic Acid 1 Mg Tab PO 1 mg DAILY YANY Administration Multivitamins 1 tab 05/31/20 09:00 05/31/20 09:24 Multivit, Therapeutic 1 Tab PO 1 tab DAILY YANY Administration Spironolactone 25 mg 05/31/20 08:00 05/31/20 09:24 Spironolactone 25 Mg Tab PO 25 mg QAM-WM YANY Administration - Exam General Appearance: awake alert Eye: anicteric sclera ENT: moist mucosa Neck: supple Heart: RRR Respiratory: CTAB Gastrointestinal: soft, non-tender Extremities: no edema Skin: no rashes Psychiatric: normal affect, normal behavior Hosp A/P (1) Hypotension Status: Acute (2) Cardiomyopathy Code(s): I42.9 - CARDIOMYOPATHY, UNSPECIFIED Status: Chronic Qualifiers: Cardiomyopathy type: ischemic Qualified Code(s): I25.5 - Ischemic cardiomyopathy (3) CAD (coronary artery disease) Code(s): I25.10 - ATHSCL HEART DISEASE OF [place] CORONARY ARTERY W/O ANG PCTRS Status: Chronic Qualifiers: Coronary Disease-Associated Artery/Lesion type: [place] artery [place] vs. transplanted heart: [place] heart Associated angina: without angina Qualified Code(s): I25.10 - Atherosclerotic heart disease of [place] coronary artery without angina pectoris (4) Chronic atrial fibrillation Code(s): I48.20 - CHRONIC ATRIAL FIBRILLATION, UNSPECIFIED Status: Chronic (5) History of peptic ulcer disease Code(s): Z87.11 - PERSONAL HISTORY OF PEPTIC ULCER DISEASE Status: Chronic - Plan Antihypertensives on hold, patient is receiving intravenous fluids. Hypotension most likely secondary to antihypertensive use. Patient is currently in sinus rhythm. No evidence of congestive heart failure at this time. Cardiology service following.
[2020-05-31 17:59] LABS: SARS-CoV-2 MS2 Positive; SARS-CoV-2 N Gene Negative; SARS-CoV-2 S Gene Negative; SARS-CoV-2 by NAA Not Detected (NotDetected); SARS-CoV-2 orf1ab Negative
--- NOTE | 2020-05-31 18:15 | CON ---
DATE OF CONSULTATION: HISTORY OF PRESENT ILLNESS: Xavier Paris is a 75-year-old white male, who I initially evaluated in my office on January 07, 2020. He has had multiple coronary stents placed in the past. He has a history of atrial fibrillation and is on amiodarone. When I initially saw him, he had never been anticoagulated. He had dizziness and a pacemaker was placed on December 23, 2019, at [facility] by Dr. Coppola. This was a [employer] dual chamber device. The evening on the day of pacemaker placement, he could not breathe. He had systolic pressures in the 60s. Paramedics were called and he was taken to [facility]. He had a moderate pericardial effusion and was given intravenous fluids, but no other intervention. He did not have any chest discomfort. He was treated conservatively and then discharged. He continued to complain of episodes of lightheadedness. When I initially saw him, with interrogation of his pacemaker, it showed that he was having episodes of atrial fibrillation up to 16 minutes. It is unclear if the atrial fibrillation correlated with his episodes of lightheadedness. Echocardiography revealed ejection fraction of 40% to 45% with mild global hypokinesis, moderate mitral regurgitation, mild tricuspid regurgitation, pacemaker wire seen on the right side of the heart. He returned on January 24 and was placed on Eliquis. When he was again seen in the office on April 26, 2020, he denied any chest pain or shortness of breath. He then presented on May 14, complaining of increased shortness of breath and wheezing. He had a nonproductive cough. Chest CT showed moderately large right pleural effusion. He did undergo right thoracentesis with removal of 1 L of fluid. He had patchy airspace densities consistent with pneumonia. Echocardiogram during that admission revealed dramatic worsening of his left ventricular function with ejection fraction of 15% to 20% with moderate right ventricular enlargement, pacemaker on the right side of the heart, left atrial enlargement, severe mitral regurgitation, aortic valvular sclerosis, and trace tricuspid regurgitation. He was diuresed, treated with antibiotics, and started on carvedilol. He also was started on very low-dose lisinopril. His pacemaker was reprogrammed to where he was no longer ventricularly pacing. Repeat echocardiogram showed that his ejection fraction did not improve after that. He was discharged on a LifeVest. There was very high threshold for his left atrial lead and that may need to be repositioned if he ultimately needs upgrade to a biventricular ICD. Since being discharged, he states at home he has been extremely weak, dizzy, lightheaded, and finds difficulty even get up and walk. He ultimately went to the emergency room at [facility] in [place] and was transferred here. He was found to be hypotensive and given intravenous fluids. He denies any chest discomfort. PAST MEDICAL HISTORY: Paroxysmal atrial fibrillation since May 2012, coronary artery disease with stent placement, hyperlipidemia, hypertension, peripheral vascular disease, pancreatitis in 2005. PAST SURGICAL HISTORY: Appendectomy, cholecystectomy, 8 stents placed in the LAD, PTCA and stent placement in the left peroneal artery, neck surgery, pacemaker insertion, hiatal hernia surgery. MEDICATIONS: 1. Carvedilol 3.125 b.i.d. 2. Lisinopril 2.5 mg a day. 3. Amiodarone 200 mg q.a.m. 4. Eliquis 5 mg b.i.d. 5. Vibramycin 100 mg b.i.d. 6. Folvite 1 mg daily. 7. Furosemide 40 q.a.m. 8. Spironolactone 25 q.a.m. 9. Multivitamin daily. ALLERGIES: PENICILLIN AND CEPHALEXIN. SOCIAL HISTORY: He smokes one pack per day. He does not drink. REVIEW OF SYSTEMS: Otherwise unremarkable. PHYSICAL EXAMINATION: VITAL SIGNS: Blood pressure 103/60, pulse of 56. HEENT: PERRL. NECK: Supple. CHEST: Clear. CARDIAC: S1 and S2 are normal without any S3, S4, or murmurs. ABDOMEN: Normal bowel sounds without tenderness or organomegaly. EXTREMITIES: Revealed no clubbing, cyanosis, or edema. NEUROLOGIC: Grossly intact. SKIN: Warm and dry. LABORATORY DATA: EKG reveals sinus bradycardia with a rate of 55 per minute with first-degree AV block, diffuse T-wave inversion similar to previous T-waves when he was hospitalized 2 weeks ago. Hemoglobin 14.2, hematocrit 41.8, white count 5300, platelets 202,000. Sodium 130, potassium 4.0, chloride 99, carbon dioxide 22, BUN 37, creatinine 1.29. It is to note that when he was admitted, BUN was 38 and creatinine was 1.69. Troponin-I is less than 0.010. Cortisol is normal. BNP 273.6. TSH slightly elevated at 8.4346. IMPRESSION: 1. Increased weakness, hypotension. He also is probably volume depleted, looking at his laboratory. 2. Increased shortness of breath from previous admission with dramatic fall in ejection fraction from 40% to 45% to 15% to 20% with ventricular pacing. 3. Severe cardiomyopathy with ejection fraction of 15% to 20%, LifeVest in place, coronary artery disease, history of 8 stents in the left anterior descending on 2 occasions. 4. Status post dual-chamber pacemaker in December 23, 2019, complicated by pericardial effusion. 5. Very high atrial thresholds. 6. Paroxysmal atrial fibrillation with episodes on pacemaker. 7. Hypertension. 8. Hypercholesterolemia. 9. Smoker. 10. Positive family history. PLAN: Diuretics, carvedilol, and lisinopril will all be held. I will give him some hydration today. Once his blood pressure is recovered and his renal function returns to normal, then probably he can only tolerate carvedilol alone and also probably would need furosemide 20 mg q.a.m., not 40 mg q.a.m. In 2-1/2 months, he will need a repeat echo to evaluate for possible ICD. Job ID: [id number] MTDD
[2020-06-01 04:09] LABS: #Basophils 0.1 thou/uL (0.0-0.2); #Eosinphils 0.1 thou/uL (0.0-0.7); #Lymphocytes 1.7 thou/uL (1.20-3.40); #Monocytes 0.4 thou/uL (0.11-0.59); #Neutrophils 2.8 thou/uL (1.40-6.50); %Basophils 1.2 % (0.0-1.0); %Monocytes 7.4 % (0.0-10.0); %Neutrophils 55.5 % (42.0-75.0); Hemoglobin 13.4 g/dL (14.0-18.0); Mean Corpuscular HGB CONC 34.1 g/dL (32.0-36.0); Mean Corpuscular Hemoglobin 33.8 pg (27.0-31.0); Mean Corpuscular Volume 99.1 fL (78.0-98.0); Mean Platelet Volume 7.6 fL (7.4-10.4); Platelet Count 190 thou/uL (130-400); RBC Distribution Width 12.3 % (11.5-14.5); Red Blood Cell (RBC) Count 3.96 mill/uL (4.70-6.10)
[2020-06-01 04:30] LABS: Anion Gap 13 mmol/L (10-20); BUN (Urea Nitrogen) 27 mg/dL (8.4-25.7); Calc. Creatinine Clearance 50 mL/min (70-130); Calcium 8.3 mg/dL (7.8-10.44); Carbon Dioxide 22 mmol/L (23-31); Chloride 104 mmol/L (98-107); Estimated GFR-MDRD 63; Glucose 91 mg/dL (83-110); Sodium 135 mmol/L (136-145)
[2020-06-01] MEDS: Folic Acid 1 MG TAB PO SCH (08:39)
[2020-06-01] MEDS: Multivit, Therapeutic 1 TAB PO SCH (08:39)
[2020-06-01] MEDS: Cyanocobalamin (Vitamin B-12) 1,000 MCG TAB PO SCH (08:39)
[2020-06-01] MEDS: Amiodarone 200 MG TAB PO SCH (08:39)
[2020-06-01] MEDS: Spironolactone 25 MG TAB PO SCH (08:39)
[2020-06-01] MEDS: Acetaminophen 325 MG TAB PO PRN (08:41)
[2020-06-01] MEDS: Sodium Chloride 0.9% 500 ML IV SCH ×2 (09:27→16:36)
--- NOTE | 2020-06-01 17:45 | PDOC.HOSPP ---
- Subjective Encounter Date: 06/01/20 Encounter Time: 11:00 Subjective: Patient seen for hypotension. Reports feeling better. - Objective Vital Signs & Weight: Vital Signs (12 hours) Temp Pulse Pulse Pulse Resp BP BP 06/01/20 12:35 97.8 F 56 L 15 06/01/20 09:32 56 L 61 73/52 L 98/53 L 06/01/20 08:22 96.1 F L 58 L 18 06/01/20 08:00 BP BP BP BP BP Pulse Ox 06/01/20 12:35 111/70 97 06/01/20 09:32 101/62 105/65 06/01/20 08:22 101/60 98 06/01/20 08:00 93/57 L 70/48 L 96/57 L 98 Weight Weight 133 lb 1.6 oz I&O: 05/31/20 06/01/20 06/02/20 06:59 06:59 06:59 Intake Total 240 240 Output Total 480 775 Balance -240 -535 Result Diagrams: 06/01/20 03:49 06/01/20 03:49 Additional Labs: Labs and MAR were reviewed by me. EKG Reviewed by me: Yes (Telemetry: Normal sinus rhythm) Hospitalist ROS - Review of Systems Respiratory: denies: cough, shortness of breath, SOB with excertion, pleuritic pain Cardiovascular: denies: chest pain, palpitations, orthopnea, paroxysmal noc. dyspnea, edema, light headedness - Medication Medications: Active Medications Generic Name Dose Route Start Last Admin Trade Name Freq PRN Reason Stop Dose Admin Acetaminophen 650 mg 05/30/20 16:25 06/01/20 08:41 Acetaminophen 325 Mg Tab PO 650 mg Q4H PRN Administration Headache/Fever/Mild Pain (1-3) Amiodarone HCl 200 mg 05/31/20 09:00 06/01/20 08:39 Amiodarone 200 Mg Tab PO 200 mg QAM YANY Administration Cyanocobalamin 1,000 mcg 05/31/20 09:00 06/01/20 08:39 Cyanocobalamin (Vitamin B-12) 1,000 Mcg Tab PO 1,000 mcg DAILY YANY Administration Folic Acid 1 mg 05/31/20 09:00 06/01/20 08:39 Folic Acid 1 Mg Tab PO 1 mg DAILY YANY Administration Multivitamins 1 tab 05/31/20 09:00 06/01/20 08:39 Multivit, Therapeutic 1 Tab PO 1 tab DAILY YANY Administration Spironolactone 25 mg 05/31/20 08:00 06/01/20 08:39 Spironolactone 25 Mg Tab PO 25 mg QAM-WM YANY Administration - Exam General Appearance: awake alert Eye: anicteric sclera ENT: moist mucosa Neck: supple Heart: RRR Respiratory: CTAB Gastrointestinal: soft, non-tender Extremities: no edema Skin: normal turgor Psychiatric: normal affect, normal behavior Hosp A/P (1) Hypotension Status: Acute (2) Cardiomyopathy Code(s): I42.9 - CARDIOMYOPATHY, UNSPECIFIED Status: Chronic Qualifiers: Cardiomyopathy type: ischemic Qualified Code(s): I25.5 - Ischemic cardiomyopathy (3) Chronic atrial fibrillation Code(s): I48.20 - CHRONIC ATRIAL FIBRILLATION, UNSPECIFIED Status: Chronic (4) CAD (coronary artery disease) Code(s): I25.10 - ATHSCL HEART DISEASE OF [place] CORONARY ARTERY W/O ANG PCTRS Status: Chronic Qualifiers: Coronary Disease-Associated Artery/Lesion type: [place] artery [place] vs. transplanted heart: [place] heart Associated angina: without angina Qualified Code(s): I25.10 - Atherosclerotic heart disease of [place] coronary artery without angina pectoris (5) History of peptic ulcer disease Code(s): Z87.11 - PERSONAL HISTORY OF PEPTIC ULCER DISEASE Status: Chronic - Plan Patient is receiving intravenous fluid boluses as needed. Antihypertensives continue to be on hold. Patient is currently in sinus rhythm. No evidence of congestive heart failure at this time. We will resume antihypertensives when patient is clinically more stable.
[2020-06-02 06:30] LABS: #Eosinphils 0.1 thou/uL (0.0-0.7); #Lymphocytes 1.5 thou/uL (1.20-3.40); #Monocytes 0.3 thou/uL (0.11-0.59); #Neutrophils 3.1 thou/uL (1.40-6.50); %Basophils 0.2 % (0.0-1.0); %Eosinophils 1.8 % (0.0-10.0); %Lymphocytes 30.1 % (21.0-51.0); %Monocytes 6.8 % (0.0-10.0); %Neutrophils 61.1 % (42.0-75.0); Hemoglobin 13.6 g/dL (14.0-18.0); Mean Corpuscular HGB CONC 33.7 g/dL (32.0-36.0); Mean Corpuscular Hemoglobin 33.9 pg (27.0-31.0); Platelet Count 182 thou/uL (130-400); RBC Distribution Width 12.2 % (11.5-14.5); Red Blood Cell (RBC) Count 4.02 mill/uL (4.70-6.10); White Blood Cell (WBC) Count 5.1 thou/uL (4.8-10.8)
[2020-06-02] MEDS: Folic Acid 1 MG TAB PO SCH (08:27)
[2020-06-02] MEDS: Spironolactone 25 MG TAB PO SCH (08:27)
[2020-06-02] MEDS: Amiodarone 200 MG TAB PO SCH (08:27)
[2020-06-02] MEDS: Multivit, Therapeutic 1 TAB PO SCH (08:27)
[2020-06-02] MEDS: Cyanocobalamin (Vitamin B-12) 1,000 MCG TAB PO SCH (08:27)
[2020-06-02] MEDS ORDERED: Sodium Chloride 0.9% 500 ML IV SCH (09:30)
[2020-06-02 10:26] LABS: Anion Gap 13 mmol/L (10-20); BUN (Urea Nitrogen) 21 mg/dL (8.4-25.7); Calc. Creatinine Clearance 52 mL/min (70-130); Calcium 8.6 mg/dL (7.8-10.44); Carbon Dioxide 23 mmol/L (23-31); Chloride 102 mmol/L (98-107); Estimated GFR-MDRD 64; Glucose 87 mg/dL (83-110); Potassium 4.5 mmol/L (3.5-5.1); Sodium 133 mmol/L (136-145)
--- NOTE | 2020-06-02 17:24 | PDOC.HOSPP ---
- Subjective Encounter Date: 06/02/20 Encounter Time: 10:00 Subjective: Pt seen for followup for hypotension, Sleepy but arousable, no complaints. - Objective Vital Signs & Weight: Vital Signs (12 hours) Temp Pulse Pulse Pulse Resp BP BP 06/02/20 15:04 56 L 16 06/02/20 11:37 97.8 F 56 L 16 06/02/20 09:00 60 61 109/63 63/56 L 06/02/20 08:23 97.6 F 59 L 16 BP BP BP BP BP Pulse Ox Pulse Ox 06/02/20 15:04 106/63 06/02/20 11:37 106/63 06/02/20 09:00 92/57 L 98 06/02/20 08:23 105/66 88/57 L 128/72 98 Pulse Ox 06/02/20 15:04 06/02/20 11:37 06/02/20 09:00 98 06/02/20 08:23 Weight Weight 142 lb 8 oz I&O: 06/01/20 06/02/20 06/03/20 06:59 06:59 06:59 Intake Total 240 720 480 Output Total 775 1375 875 Balance -535 -655 -395 Result Diagrams: 06/02/20 04:00 06/02/20 03:34 Additional Labs: MAR and labs reviewed by me EKG Reviewed by me: Yes (Tele: NSR) Hospitalist ROS - Review of Systems Cardiovascular: denies: chest pain, palpitations, orthopnea, paroxysmal noc. dyspnea, edema, light headedness Genitourinary: denies: dysuria, frequency, incontinence, hematuria - Medication Medications: Active Medications Generic Name Dose Route Start Last Admin Trade Name Freq PRN Reason Stop Dose Admin Acetaminophen 650 mg 05/30/20 16:25 06/01/20 08:41 Acetaminophen 325 Mg Tab PO 650 mg Q4H PRN Administration Headache/Fever/Mild Pain (1-3) Amiodarone HCl 200 mg 05/31/20 09:00 06/02/20 08:27 Amiodarone 200 Mg Tab PO 200 mg QAM YANY Administration Cyanocobalamin 1,000 mcg 05/31/20 09:00 06/02/20 08:27 Cyanocobalamin (Vitamin B-12) 1,000 Mcg Tab PO 1,000 mcg DAILY YANY Administration Folic Acid 1 mg 05/31/20 09:00 10 08:27 Folic Acid 1 Mg Tab PO 1 mg DAILY YANY Administration Multivitamins 1 tab 05/31/20 09:00 06/02/20 08:27 Multivit, Therapeutic 1 Tab PO 1 tab DAILY YANY Administration - Exam General Appearance: awake alert Eye: anicteric sclera ENT: moist mucosa Neck: supple Heart: RRR Respiratory: CTAB Gastrointestinal: non-tender Skin: no lesions Psychiatric: normal affect Hosp A/P (1) Hypotension Status: Acute (2) Cardiomyopathy Code(s): I42.9 - CARDIOMYOPATHY, UNSPECIFIED Status: Chronic Qualifiers: Cardiomyopathy type: ischemic Qualified Code(s): I25.5 - Ischemic cardiomyopathy (3) History of peptic ulcer disease Code(s): Z87.11 - PERSONAL HISTORY OF PEPTIC ULCER DISEASE Status: Chronic (4) CAD (coronary artery disease) Code(s): I25.10 - ATHSCL HEART DISEASE OF [place] CORONARY ARTERY W/O ANG PCTRS Status: Chronic Qualifiers: Coronary Disease-Associated Artery/Lesion type: [place] artery [place] vs. transplanted heart: [place] heart Associated angina: without angina Qualified Code(s): I25.10 - Atherosclerotic heart disease of [place] coronary artery without angina pectoris (5) Chronic atrial fibrillation Code(s): I48.20 - CHRONIC ATRIAL FIBRILLATION, UNSPECIFIED Status: Chronic - Plan 500 ml NS bolus today. Patient is currently in sinus rhythm. No evidence of congestive heart failure at this time. Antihypertensives on hold
[2020-06-03] MEDS: Multivit, Therapeutic 1 TAB PO SCH (09:42)
[2020-06-03] MEDS: Cyanocobalamin (Vitamin B-12) 1,000 MCG TAB PO SCH (09:42)
[2020-06-03] MEDS: Amiodarone 200 MG TAB PO SCH (09:42)
[2020-06-03] MEDS: Folic Acid 1 MG TAB PO SCH (09:42)
[2020-06-03] MEDS: Sodium Chloride 0.9% 500 ML IV SCH ×2 (11:33→13:16)
--- NOTE | 2020-06-03 18:52 | PDOC.HOSPP ---
- Subjective Encounter Date: 06/03/20 Encounter Time: 10:00 Subjective: Patient seen for follow-up regarding hypotension. Reports feeling better. - Objective Vital Signs & Weight: Vital Signs (12 hours) Temp Pulse Resp BP BP BP BP 06/03/20 15:05 97.8 F 56 L 22 H 120/70 06/03/20 11:31 61 16 132/73 06/03/20 11:30 97.6 F 61 12 125/68 132/73 06/03/20 08:00 97.7 F 60 12 83/55 L 60/40 L 108/61 Pulse Ox 06/03/20 15:05 99 06/03/20 11:31 100 06/03/20 11:30 100 06/03/20 08:00 98 Weight Weight 141 lb 3.2 oz I&O: 06/02/20 06/03/20 06/04/20 06:59 06:59 06:59 Intake Total 1230 1130 750 Output Total 1375 1650 400 Balance -145 -520 350 Result Diagrams: 06/02/20 04:00 06/02/20 03:34 Additional Labs: I reviewed patient's labs and MAR EKG Reviewed by me: Yes (Telemetry: Electronic atrial paced rhythm) Hospitalist ROS - Review of Systems Respiratory: denies: cough, shortness of breath, SOB with excertion, pleuritic pain, wheezing Cardiovascular: denies: chest pain, palpitations, orthopnea, paroxysmal noc. dyspnea, edema, light headedness - Medication Medications: Active Medications Generic Name Dose Route Start Last Admin Trade Name Freq PRN Reason Stop Dose Admin Acetaminophen 650 mg 05/30/20 16:25 06/01/20 08:41 Acetaminophen 325 Mg Tab PO 650 mg Q4H PRN Administration Headache/Fever/Mild Pain (1-3) Amiodarone HCl 200 mg 05/31/20 09:00 06/03/20 09:42 Amiodarone 200 Mg Tab PO 200 mg QAM YANY Administration Cyanocobalamin 1,000 mcg 05/31/20 09:00 06/03/20 09:42 Cyanocobalamin (Vitamin B-12) 1,000 Mcg Tab PO 1,000 mcg DAILY YANY Administration Folic Acid 1 mg 05/31/20 09:00 06/03/20 09:42 Folic Acid 1 Mg Tab PO 1 mg DAILY YANY Administration Multivitamins 1 tab 05/31/20 09:00 06/03/20 09:42 Multivit, Therapeutic 1 Tab PO 1 tab DAILY YANY Administration - Exam General Appearance: awake alert Eye: anicteric sclera ENT: normocephalic atraumatic Neck: supple Heart: RRR Respiratory: CTAB Gastrointestinal: soft, non-tender Extremities: no cyanosis Psychiatric: normal affect, normal behavior Hosp A/P (1) Hypotension Status: Acute (2) History of peptic ulcer disease Code(s): Z87.11 - PERSONAL HISTORY OF PEPTIC ULCER DISEASE Status: Chronic (3) Cardiomyopathy Code(s): I42.9 - CARDIOMYOPATHY, UNSPECIFIED Status: Chronic Qualifiers: Cardiomyopathy type: ischemic Qualified Code(s): I25.5 - Ischemic cardiomyopathy (4) CAD (coronary artery disease) Code(s): I25.10 - ATHSCL HEART DISEASE OF [place] CORONARY ARTERY W/O ANG PCTRS Status: Chronic Qualifiers: Coronary Disease-Associated Artery/Lesion type: [place] artery [place] vs. transplanted heart: [place] heart Associated angina: without angina Qualified Code(s): I25.10 - Atherosclerotic heart disease of [place] coronary artery without angina pectoris (5) Chronic atrial fibrillation Code(s): I48.20 - CHRONIC ATRIAL FIBRILLATION, UNSPECIFIED Status: Chronic - Plan Patient was admitted for hypotension in the context of antihypertensive use and diuretic use. All antihypertensives were held. Patient is clinically improving. 500 ml NS bolus today. Patient is currently in sinus rhythm. Cardiology service is awaiting cath report from [facility]. They recommended resuming apixaban. They also recommended not resuming lisinopril, Coreg, Lasix and spironolactone when discharged. Cardiology service will follow-up in office next week and decide what to resume.
[2020-06-03] MEDS: Apixaban 5 MG TAB PO SCH (20:12)
[2020-06-04 04:37] LABS: Anion Gap 13 mmol/L (10-20); BUN (Urea Nitrogen) 18 mg/dL (8.4-25.7); Calc. Creatinine Clearance 67 mL/min (70-130); Calcium 8.4 mg/dL (7.8-10.44); Carbon Dioxide 20 mmol/L (23-31); Chloride 103 mmol/L (98-107); Estimated GFR-MDRD 87; Glucose 86 mg/dL (83-110); Potassium 4.1 mmol/L (3.5-5.1); Sodium 132 mmol/L (136-145)
[2020-06-04] MEDS: Amiodarone 200 MG TAB PO SCH (09:48)
[2020-06-04] MEDS: Folic Acid 1 MG TAB PO SCH (09:48)
[2020-06-04] MEDS: Cyanocobalamin (Vitamin B-12) 1,000 MCG TAB PO SCH (09:48)
[2020-06-04] MEDS: Apixaban 5 MG TAB PO SCH ×2 (09:48→20:20)
[2020-06-04] MEDS: Multivit, Therapeutic 1 TAB PO SCH (09:48)
--- NOTE | 2020-06-04 10:03 | PDOC.CPN ---
- Subjective Date: 06/04/20 Time: 10:02 Interval history: Patient with c/o lack of sleep. Otherwise ok. SBP still 84-85mmHg. Occasionally drops to 70s. - Review of Systems General: reports: fatigue Respiratory: reports: shortness of breath Cardiovascular: denies: chest pain, palpitation, edema, paroxysmal nocturnal dyspnea, orthopnea Gastrointestinal: denies: nausea, vomiting, diarrhea, constipation, abd pain, GI bleeding Musculoskeletal: denies: pain, tenderness, stiffness, swelling, arthritis/arthralgias Neurological: denies: numbness, syncope, seizure, weakness - Objective Allergies/Adverse Reactions: Allergies Allergy/AdvReac Type Severity Reaction Status Date / Time cephalexin monohydrate Allergy Verified 03/18/20 10:29 [From Keflex] Penicillins Allergy Verified 03/18/20 10:29 Visit Medications: Current Medications Acetaminophen (Acetaminophen 325 Mg Tab) 650 mg PO Q4H PRN PRN Reason: Headache/Fever/Mild Pain (1-3) Last Admin: 06/01/20 08:41 Dose: 650 mg Documented by: Amiodarone HCl (Amiodarone 200 Mg Tab) 200 mg PO QAM [facility] Last Admin: 06/04/20 09:48 Dose: 200 mg Documented by: Apixaban (Apixaban 5 Mg Tab) 5 mg PO BID [facility] Last Admin: 06/04/20 09:48 Dose: 5 mg Documented by: Bisacodyl (Bisacodyl 5 Mg Tab) 10 mg PO DAILYPRN PRN PRN Reason: Constipation Cyanocobalamin (Cyanocobalamin (Vitamin B-12) 1,000 Mcg Tab) 1,000 mcg PO DAILY [facility] Last Admin: 06/04/20 09:48 Dose: 1,000 mcg Documented by: Folic Acid (Folic Acid 1 Mg Tab) 1 mg PO DAILY [facility] Last Admin: 06/04/20 09:48 Dose: 1 mg Documented by: Midodrine (Midodrine Hcl 5 Mg Tab) 5 mg PO TID [facility] Midodrine (Midodrine Hcl 5 Mg Tab) 5 mg PO NOW [facility] Multivitamins (Multivit, Therapeutic 1 Tab) 1 tab PO DAILY [facility] Last Admin: 06/04/20 09:48 Dose: 1 tab Documented by: Vital Signs & Weight: Vital Signs Temp Pulse Resp BP BP Pulse Ox 10/10/20 09:24 97.6 F 59 L 17 85/52 L 97 06/04/20 04:00 97.6 F 53 L 12 137/81 98 Weight 142 lb 4.8 oz - Physical Exam General: alert & oriented x3, cachectic Cardiac: regular rate and rhythm, other (ectopy noted) Lungs: clear to auscultation, other (decreased BS at bases bilaterally) Neuro: grossly intact Extremities: no edema, clubbing Skin: clear Musculoskeletal: no pain - Labs Result Diagrams: 06/02/20 04:00 06/04/20 04:05 Troponin/CKMB Troponin I Less than 0.010 ng/mL (< 0.028) 05/30/20 20:00 - Assessment/Plan Assessment/Plan: 1. 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 Orthostatic hypotension 3. CAD 4. Paroxysmal AFib 5. s/p pacemaker Will trial low dose midodrine. All cardiac/CHF meds have been discontinued due to hypotension. Not much response to slow IVFs. If BP improves on midodrine, can probably be discharged to resume outpatient management with Dr. Zhu. Pt. seen and eval. by me. I agree with the A/P by the PA. His only c/o to me was that he wants somethibgto eat. Chest clear. RRR. continue present care.
[2020-06-04] MEDS: Midodrine HCl 5 MG TAB PO SCH ×4 (10:54→20:20)
[2020-06-04] MEDS ORDERED: Fludrocortisone Acetate 0.1 MG TAB PO SCH (17:15)
--- NOTE | 2020-06-04 18:25 | PDOC.HOSPP ---
- Subjective Encounter Date: 06/04/20 Encounter Time: 09:30 Subjective: F/u: orthostatic hypotension The patients blood pressure was 80 systolic this morning. He states when he stands up his legs feel very wobbly. He did have some dizziness on admission. The patient was given midodrine and repeat orthostatics were positive so fludrocortisone ordered, but not given yet Repeat orthostatics at 5:00 pm negative but per nursing patient still complains of "wobbly " legs. He has no back pain . PT has not seen patient before - Objective Vital Signs & Weight: Vital Signs (12 hours) Temp Pulse Resp BP BP Pulse Ox 06/04/20 16:58 97.6 F 56 L 16 140/76 131/72 97 06/04/20 12:06 98.7 F 59 L 16 102/61 86/53 L 95 06/04/20 09:35 97 06/04/20 09:24 97.6 F 59 L 17 85/52 L 97 06/04/20 08:00 85/52 L 84/51 L Weight Weight 142 lb 4.8 oz I&O: 06/03/20 06/04/20 06/05/20 06:59 06:59 06:59 Intake Total 1130 750 Output Total 1650 400 Balance -520 350 Result Diagrams: 06/02/20 04:00 06/04/20 04:05 Hospitalist ROS - Review of Systems Constitutional: denies: fever, chills - Medication Medications: Active Medications Generic Name Dose Route Start Last Admin Trade Name Freq PRN Reason Stop Dose Admin Acetaminophen 650 mg 05/30/20 16:25 06/01/20 08:41 Acetaminophen 325 Mg Tab PO 650 mg Q4H PRN Administration Headache/Fever/Mild Pain (1-3) Amiodarone HCl 200 mg 05/31/20 09:00 06/04/20 09:48 Amiodarone 200 Mg Tab PO 200 mg QAM YANY Administration Apixaban 5 mg 06/03/20 21:00 06/04/20 09:48 Apixaban 5 Mg Tab PO 5 mg BID YANY Administration Cyanocobalamin 1,000 mcg 05/31/20 09:00 06/04/20 09:48 Cyanocobalamin (Vitamin B-12) 1,000 Mcg Tab PO 1,000 mcg DAILY YANY Administration Folic Acid 1 mg 05/31/20 09:00 06/04/20 09:48 Folic Acid 1 Mg Tab PO 1 mg DAILY YANY Administration Midodrine 5 mg 06/04/20 15:00 06/04/20 15:56 Midodrine Hcl 5 Mg Tab PO 5 mg TID YANY Administration Multivitamins 1 tab 05/31/20 09:00 06/04/20 09:48 Multivit, Therapeutic 1 Tab PO 1 tab DAILY [facility] Administration - Exam General Appearance: NAD, awake alert Eye: PERRL, anicteric sclera Neck: no JVD Heart: RRR, no murmur, no gallops, no rubs Respiratory: CTAB, no wheezes, no rales, no ronchi Gastrointestinal: soft, non-tender, non-distended, normal bowel sounds Extremities: no cyanosis, no clubbing, no edema Hosp A/P - Plan This is a 75 year old male with systolic CHF who was admitted for hypotension Orthostatic hypotension - he is s/p IV fluids yesterday. He has been started on midodrine. Will add fludrocortisone - continue to hold all antihypertensives - diet has been switched to a regular diet - he has a pacemaker, not sure if this has been interrogated before, will do interrogation if not #Chronic Systolic CHF #Severe MR #Mild to Moderate TR - last ECHO 05/19/20 showed EF 15-20% with severe MR. All cardiac meds on hold - will change diet to regular diet with 2L fluid restriction given persistent hypotension Gait instability - have PT evaluate in the morning Hyponatremia - sodium down to 132. REceived IV fluid yesterday, will continue to trend - cortisol normal. Check TSH AFib - continue amiodarone and eliquis Macrocytic Anemia - TSh high, free T4 normal - check B12/folate in am
[2020-06-05 04:34] LABS: Anion Gap 12 mmol/L (10-20); BUN (Urea Nitrogen) 17 mg/dL (8.4-25.7); Calc. Creatinine Clearance 67 mL/min (70-130); Calcium 8.2 mg/dL (7.8-10.44); Carbon Dioxide 20 mmol/L (23-31); Chloride 103 mmol/L (98-107); Estimated GFR-MDRD 86; Glucose 91 mg/dL (83-110); Potassium 4.5 mmol/L (3.5-5.1); Sodium 130 mmol/L (136-145)
[2020-06-05 08:41] LABS: Hemoglobin 14.5 g/dL (14.0-18.0); Platelet Count 185 thou/uL (130-400)
[2020-06-05] MEDS ORDERED: Fludrocortisone Acetate 0.1 MG TAB PO SCH (09:00)
[2020-06-05] MEDS ORDERED: Furosemide 20 MG TAB PO SCH (09:00)
[2020-06-05] MEDS ORDERED: Midodrine HCl 5 MG TAB PO PRN (09:20)
[2020-06-05] MEDS: Folic Acid 1 MG TAB PO SCH (09:45)
[2020-06-05] MEDS: Amiodarone 200 MG TAB PO SCH (09:45)
[2020-06-05] MEDS: Multivit, Therapeutic 1 TAB PO SCH (09:45)
[2020-06-05] MEDS: Apixaban 5 MG TAB PO SCH ×2 (09:45→20:08)
[2020-06-05] MEDS: Cyanocobalamin (Vitamin B-12) 1,000 MCG TAB PO SCH (09:45)
[2020-06-05] MEDS: Fludrocortisone Acetate 0.1 MG TAB PO SCH (09:46)
[2020-06-05] MEDS: Midodrine HCl 5 MG TAB PO SCH ×2 (09:51→20:09)
--- NOTE | 2020-06-05 10:27 | PDOC.CPN ---
- Subjective Date: 06/05/20 Time: 10:22 Interval history: Patient with improved BP on Midodrine. States that when he stands his legs feel weak. Has not walked in [place] yet. No dizziness. - Review of Systems General: denies: fever/chills, weight/appetite/sleep changes, night sweats, fatigue Respiratory: denies: cough, congestion, shortness of breath, exercise intolerance Cardiovascular: denies: chest pain, palpitation, edema, paroxysmal nocturnal dyspnea, orthopnea Gastrointestinal: denies: nausea, vomiting, diarrhea, constipation, abd pain, GI bleeding Musculoskeletal: denies: pain, tenderness, stiffness, swelling, arthritis/arthralgias Neurological: reports: weakness - Objective Allergies/Adverse Reactions: Allergies Allergy/AdvReac Type Severity Reaction Status Date / Time cephalexin monohydrate Allergy Verified 03/18/20 10:29 [From Keflex] Penicillins Allergy Verified 03/18/20 10:29 Visit Medications: Current Medications Acetaminophen (Acetaminophen 325 Mg Tab) 650 mg PO Q4H PRN PRN Reason: Headache/Fever/Mild Pain (1-3) Last Admin: 06/01/20 08:41 Dose: 650 mg Documented by: Amiodarone HCl (Amiodarone 200 Mg Tab) 200 mg PO QAM [facility] Last Admin: 06/05/20 09:45 Dose: 200 mg Documented by: Apixaban (Apixaban 5 Mg Tab) 5 mg PO BID [facility] Last Admin: 06/05/20 09:45 Dose: 5 mg Documented by: Bisacodyl (Bisacodyl 5 Mg Tab) 10 mg PO DAILYPRN PRN PRN Reason: Constipation Cyanocobalamin (Cyanocobalamin (Vitamin B-12) 1,000 Mcg Tab) 1,000 mcg PO DAILY [facility] Last Admin: 06/05/20 09:45 Dose: 1,000 mcg Documented by: Fludrocortisone Acetate (Fludrocortisone Acetate 0.1 Mg Tab) 0.1 mg PO DAILY [facility] Last Admin: 06/05/20 09:46 Dose: 0.1 mg Documented by: Folic Acid (Folic Acid 1 Mg Tab) 1 mg PO DAILY [facility] Last Admin: 06/05/20 09:45 Dose: 1 mg Documented by: Furosemide (Furosemide 20 Mg Tab) 20 mg PO DAILY [facility] Midodrine (Midodrine Hcl 5 Mg Tab) 5 mg PO TIDPRN PRN PRN Reason: Hypotension Multivitamins (Multivit, Therapeutic 1 Tab) 1 tab PO DAILY [facility] Last Admin: 06/05/20 09:45 Dose: 1 tab Documented by: Vital Signs & Weight: Vital Signs Temp Pulse Resp BP BP BP Pulse Ox 06/05/20 07:41 97.0 F L 60 18 113/74 110/73 99 06/05/20 04:00 98.4 F 57 L 16 122/73 Weight 141 lb 1.6 oz - Physical Exam General: alert & oriented x3, appears well, no apparent distress Neck: supple neck Cardiac: regular rate and rhythm Lungs: normal breath sounds Neuro: grossly intact Abdomen: soft, non-tender Extremities: no cyanosis, no edema, clubbing Skin: clear Musculoskeletal: no pain - Labs Result Diagrams: 06/05/20 08:15 06/05/20 08:15 Troponin/CKMB Troponin I Less than 0.010 ng/mL (< 0.028) 05/30/20 20:00 - Assessment/Plan Assessment/Plan: 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 Orthostatic hypotension 3. CAD 4. Paroxysmal AFib 5. s/p pacemaker BP improved on midodrine. Will continue. On Amio. Resume low dose lasix. Stable for discharge, but patient reports leg weakness. Will have PT walk with him. Pt. seen and eval. by me. I agree with the A/P by the PA. His orthostatic hypotension is still an issue. He may need support hose up to the waist when he is up. I do not know if this will be possible for he or his to get the hose on him. gasper
--- NOTE | 2020-06-05 17:05 | PDOC.HOSPP ---
- Subjective Subjective: F/u: orthostatic hypotension The patient denied dizziness today. He still had some wobbliness in legs when ambulating to the bathroom. BP was 113 this am. An hour later at around 9:40 am, BP was 90 sitting and dropped to 70 systolic. He received fludrocortisone with improvement. When cardiac rehab tried to ambulate him, his BP was 80 systolic, therefore he was given midodrine at 2:00 pm. He had been given lasix at around 11:30 am requested by cardiology. Cardiac rehab reassessed him again and BP was 96/57 before walking and 95/58 after walking. The patient had no significant com plaints. I spoke with the patient's and she was adamant on PT seeing him and doing leg massages and exercises while in the chair. PT evaluated him at 4:20 pm and BP was 97/61 walking and after was 121/69. They stated he was wobbly without a walker, but with the walker he was fine. I spoke to the patient's again, she would like the patient to have 24-48 hours of consecutively normal blood pressures. She was also very angry that patient was discharged on coreg, lasix, spironolactone and lisinopril during his last admission when he normally has low blood pressures. She states his blood pressures are normally 100 systolic at home. She states when he had his pacemaker placed around October, he was hypotensive to the 70's after and required an ICU stay She also requested a walker be kept next to his bed since nursing are not always available to ambulate him to the bathroom. - Objective Vital Signs & Weight: Vital Signs (12 hours) Temp Pulse Pulse Pulse Pulse Pulse Resp 06/05/20 16:35 97.5 F L 61 14 06/05/20 15:35 73 64 06/05/20 15:23 59 L 58 L 06/05/20 11:28 06/05/20 11:25 96.3 F L 60 12 06/05/20 09:42 06/05/20 09:40 06/05/20 07:41 97.0 F L 60 18 BP BP BP BP BP BP Pulse Ox 06/05/20 16:35 134/71 97 06/05/20 15:35 97/61 121/69 06/05/20 15:23 95/58 L 96/57 L 06/05/20 11:28 95/59 L 06/05/20 11:25 101/60 98 06/05/20 09:42 76/51 L 06/05/20 09:40 90/53 L 06/05/20 07:41 113/74 110/73 99 Pulse Ox 06/05/20 16:35 06/05/20 15:35 06/05/20 15:23 98 06/05/20 11:28 06/05/20 11:25 06/05/20 09:42 06/05/20 09:40 06/05/20 07:41 Weight Weight 141 lb 1.6 oz I&O: 06/04/20 06/05/20 06/06/20 06:59 06:59 06:59 Intake Total 750 990 Output Total 400 450 Balance 350 540 Result Diagrams: 06/05/20 08:15 06/05/20 08:15 Hospitalist ROS - Medication Medications: Active Medications Generic Name Dose Route Start Last Admin Trade Name Freq PRN Reason Stop Dose Admin Acetaminophen 650 mg 05/30/20 16:25 06/01/20 08:41 Acetaminophen 325 Mg Tab PO 650 mg Q4H PRN Administration Headache/Fever/Mild Pain (1-3) Amiodarone HCl 200 mg 05/31/20 09:00 06/05/20 09:45 Amiodarone 200 Mg Tab PO 200 mg QAM YANY Administration Apixaban 5 mg 06/03/20 21:00 06/05/20 09:45 Apixaban 5 Mg Tab PO 5 mg BID YANY Administration Cyanocobalamin 1,000 mcg 05/31/20 09:00 06/05/20 09:45 Cyanocobalamin (Vitamin B-12) 1,000 Mcg Tab PO 1,000 mcg DAILY [facility] Administration Fludrocortisone Acetate 0.1 mg 06/05/20 09:00 06/05/20 09:46 Fludrocortisone Acetate 0.1 Mg Tab PO 0.1 mg DAILY [facility] Administration Folic Acid 1 mg 05/31/20 09:00 06/05/20 09:45 Folic Acid 1 Mg Tab PO 1 mg DAILY [facility] Administration Midodrine 5 mg 06/05/20 09:20 06/05/20 14:08 Midodrine Hcl 5 Mg Tab PO 5 mg TIDPRN PRN Administration Hypotension Multivitamins 1 tab 05/31/20 09:00 06/05/20 09:45 Multivit, Therapeutic 1 Tab PO 1 tab DAILY [facility] Administration - Exam General Appearance: NAD, awake alert Eye: PERRL, anicteric sclera ENT: no oropharyngeal lesions Neck: supple, no JVD Heart: RRR, no murmur, no gallops, no rubs Respiratory: CTAB, no wheezes, no rales, no ronchi Gastrointestinal: soft, non-tender, non-distended, normal bowel sounds Extremities: no cyanosis, no clubbing, no edema Skin: normal turgor, no lesions, no rashes Hosp A/P - Plan This is a 75 year old male with systolic CHF who was admitted for hypotension Orthostatic hypotension - he is s/p IV fluids yesterday. He has been started on midodrine tid prn and fludrocortisone added - he is on a regular diet - he has a pacemaker, not sure if this has been interrogated before, will do interrogation if not #Chronic Systolic CHF #Severe MR #Mild to Moderate TR - last ECHO 05/19/20 showed EF 15-20% with severe MR. All cardiac meds on hold - he is on regular diet with 2L fluid restriction Gait instability - PT is evaluating the patient Hyponatremia - sodium came down to 130. He received IV fluids on 06/03. Will check serum and urine osmolarity 2. REceived IV fluid yesterday, will continue to trendTSH high, free T4 and cortisol normal on 05/30 AFib - continue amiodarone and eliquis Macrocytic Anemia - TSh high, free T4 normal - check B12/folate in am
[2020-06-06 04:28] LABS: Hemoglobin 12.9 g/dL (14.0-18.0); Mean Corpuscular HGB CONC 34.4 g/dL (32.0-36.0); Mean Corpuscular Volume 98.9 fL (78.0-98.0); Mean Platelet Volume 8.7 fL (7.4-10.4); Platelet Count 160 thou/uL (130-400); RBC Distribution Width 12.3 % (11.5-14.5); White Blood Cell (WBC) Count 8.5 thou/uL (4.8-10.8)
[2020-06-06 04:54] LABS: Anion Gap 13 mmol/L (10-20); BUN (Urea Nitrogen) 19 mg/dL (8.4-25.7); Calc. Creatinine Clearance 57 mL/min (70-130); Calcium 8.4 mg/dL (7.8-10.44); Carbon Dioxide 24 mmol/L (23-31); Chloride 100 mmol/L (98-107); Estimated GFR-MDRD 72; Glucose 86 mg/dL (83-110); Potassium 3.9 mmol/L (3.5-5.1); Sodium 133 mmol/L (136-145)
[2020-06-06] MEDS: Midodrine HCl 5 MG TAB PO SCH ×3 (08:37→21:28)
[2020-06-06] MEDS: Folic Acid 1 MG TAB PO SCH (08:37)
[2020-06-06] MEDS: Apixaban 5 MG TAB PO SCH ×2 (08:37→21:28)
[2020-06-06] MEDS: Amiodarone 200 MG TAB PO SCH (08:37)
[2020-06-06] MEDS: Cyanocobalamin (Vitamin B-12) 1,000 MCG TAB PO SCH (08:37)
[2020-06-06] MEDS: Multivit, Therapeutic 1 TAB PO SCH (08:37)
[2020-06-06] MEDS: Fludrocortisone Acetate 0.1 MG TAB PO SCH (08:37)
--- NOTE | 2020-06-06 17:43 | PDOC.HOSPP ---
- Subjective Encounter Date: 06/06/20 Encounter Time: 08:00 Subjective: The patient ambulated today and was not orthostatic. He stated he felt wobbly some. does not want to take him home today and prefers tomorrow. Wants another day of ambulating without being orthostatic since he was yesterday She also stated that on discharge she would like to be in the room while nurses are going over instructions - Objective Vital Signs & Weight: Vital Signs (12 hours) Temp Pulse Pulse Pulse Resp BP BP 06/06/20 16:49 98.0 F 56 L 16 06/06/20 11:28 97.5 F L 59 L 16 06/06/20 10:24 63 59 L 121/65 102/57 L 06/06/20 07:47 97.9 F 63 18 BP BP BP Pulse Ox Pulse Ox Pulse Ox 06/06/20 16:49 132/64 98 06/06/20 11:28 102/57 L 97 06/06/20 10:24 96 98 06/06/20 07:47 105/66 96/60 145/77 H 96 Weight Weight 133 lb 1.76 oz I&O: 06/05/20 06/06/20 06/07/20 06:59 06:59 06:59 Intake Total 990 1080 Output Total 450 1275 Balance 540 -195 Result Diagrams: 06/06/20 03:47 06/06/20 03:47 Hospitalist ROS - Review of Systems Constitutional: denies: fever, chills - Medication Medications: Active Medications Generic Name Dose Route Start Last Admin Trade Name Freq PRN Reason Stop Dose Admin Acetaminophen 650 mg 05/30/20 16:25 06/01/20 08:41 Acetaminophen 325 Mg Tab PO 650 mg Q4H PRN Administration Headache/Fever/Mild Pain (1-3) Amiodarone HCl 200 mg 05/31/20 09:00 06/06/20 08:37 Amiodarone 200 Mg Tab PO 200 mg QAM YANY Administration Apixaban 5 mg 06/03/20 21:00 06/06/20 08:37 Apixaban 5 Mg Tab PO 5 mg BID [facility]ANY Administration Cyanocobalamin 1,000 mcg 05/31/20 09:00 06/06/20 08:37 Cyanocobalamin (Vitamin B-12) 1,000 Mcg Tab PO 1,000 mcg DAILY [facility] Administration Fludrocortisone Acetate 0.1 mg 06/05/20 09:00 06/06/20 08:37 Fludrocortisone Acetate 0.1 Mg Tab PO 0.1 mg DAILY [facility] Administration Folic Acid 1 mg 05/31/20 09:00 06/06/20 08:37 Folic Acid 1 Mg Tab PO 1 mg DAILY [facility] Administration Midodrine 5 mg 06/05/20 09:20 06/05/20 14:08 Midodrine Hcl 5 Mg Tab PO 5 mg TIDPRN PRN Administration Hypotension Midodrine 5 mg 06/05/20 21:00 06/06/20 16:01 Midodrine Hcl 5 Mg Tab PO 5 mg TID [facility]ANY Administration Multivitamins 1 tab 05/31/20 09:00 06/06/20 08:37 Multivit, Therapeutic 1 Tab PO 1 tab DAILY [facility] Administration - Exam General Appearance: NAD, awake alert Eye: PERRL, anicteric sclera ENT: normocephalic atraumatic, no oropharyngeal lesions Neck: no JVD Heart: RRR, no murmur, no gallops, no rubs Respiratory: CTAB, no wheezes, no rales, no ronchi Gastrointestinal: soft, non-tender, non-distended, normal bowel sounds Extremities: no cyanosis, no clubbing, no edema Skin: normal turgor, no lesions, no rashes Hosp A/P - Plan This is a 75 year old male with systolic CHF who was admitted for hypotension Orthostatic hypotension - he is s/p IV fluids 06/03 - continue midodrine and fludrocortisone - continue PT #Chronic Systolic CHF #Severe MR #Mild to Moderate TR - last ECHO 05/19/20 showed EF 15-20% with severe MR. All cardiac meds on hold - he is on regular diet with 2L fluid restriction Gait instability - PT is evaluating the patient Hyponatremia - improved to 133. . He received IV fluids on 06/03. Serum osmolarity low and urine normal. - continue 2L fluid restriction. TSH high, free T4 and cortisol normal on 05/30 AFib - continue amiodarone and eliquis Macrocytic Anemia - TSh high, free T4 normal - B12/folate normal
[2020-06-07 04:38] LABS: Anion Gap 11 mmol/L (10-20); BUN (Urea Nitrogen) 17 mg/dL (8.4-25.7); Calc. Creatinine Clearance 65 mL/min (70-130); Calcium 8.1 mg/dL (7.8-10.44); Carbon Dioxide 21 mmol/L (23-31); Chloride 103 mmol/L (98-107); Estimated GFR-MDRD 88; Glucose 89 mg/dL (83-110); Sodium 131 mmol/L (136-145)
[2020-06-07] MEDS: Apixaban 5 MG TAB PO SCH (08:28)
[2020-06-07] MEDS: Midodrine HCl 5 MG TAB PO SCH (08:28)
[2020-06-07] MEDS: Multivit, Therapeutic 1 TAB PO SCH (08:28)
[2020-06-07] MEDS: Cyanocobalamin (Vitamin B-12) 1,000 MCG TAB PO SCH (08:28)
[2020-06-07] MEDS: Folic Acid 1 MG TAB PO SCH (08:28)
[2020-06-07] MEDS: Fludrocortisone Acetate 0.1 MG TAB PO SCH (08:28)
[2020-06-07] MEDS: Amiodarone 200 MG TAB PO SCH (08:29)
[2020-06-07 11:31] VITALS: BP 135/72; TEMP 97.6
--- NOTE | 2020-06-08 15:32 | DIS ---
DATE OF ADMISSION: 05/30/2020 DATE OF DISCHARGE: 06/07/2020 DISCHARGE DIAGNOSES: 1. Weakness secondary to orthostatic hypotension. 2. Chronic systolic heart failure. 3. Moderate mitral regurgitation. CONSULTATIONS: Cardiology, Dr. Glen Zhu. PROCEDURES: None. BRIEF HISTORY OF PRESENT ILLNESS: This is a 75-year-old male with past medical history of severe cardiomyopathy, who had a recent pacemaker placed earlier this year, presented to the hospital due to generalized weakness and sensation of lightheadedness when standing up. 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 He was sent to the emergency room, was found to be hypotensive with a blood pressure of 98/67. He was admitted to the hospital for further workup. 1. Hypotension: The patient presented with a blood pressure of 100/66, which dropped to 76/53 sitting and 73/51 standing. He was hydrated with IV fluids for one day. TSH was elevated at 7.6, but free T4 was normal. Cortisol level was normal. Echocardiogram showed an EF of 20% to 25% with moderate MR. The patient was started on midodrine and fludrocortisone with improvement. Orthostatics were rechecked at the time of discharge and were positive, but the patient was asymptomatic. His blood pressure was 121/60 supine and 99/56 standing. The patient ambulated with physical therapy and reported mild "wobbliness". He was discharged with a walker. His Lasix, spironolactone, and Coreg were discontinued on discharge. These will be re-initiated at the discretion of Dr. Zhu when he follows up with him in a week. 2. Anemia: The patient had a hemoglobin of 12.9. Vitamin B12 was 364 and folate was 13.3. DISCHARGE PHYSICAL EXAMINATION: VITAL SIGNS: Temperature 97.6, heart rate 58, respiratory rate 24, O2 saturation 96% on room air, and blood pressure 135/72. GENERAL: The patient is alert, awake, and orient x3. CVS: Regular rate and rhythm with no murmurs, rubs, or gallops. LUNGS: Clear to auscultation bilaterally. ABDOMEN: Positive bowel sounds. Soft, nontender, and nondistended. EXTREMITIES: No edema. PERTINENT LABORATORY DATA: CBC on 06/06: White count 8.5, hemoglobin 12.9, hematocrit 37.6, and platelet count 160. BMP on 06/07: Sodium 131, bicarb 21, and creatinine 0.85. Rest of BMP unremarkable. TSH: 7.655. Free T4: 1.20. Vitamin B12: 364. Folate: 13.3. Cortisol: 15.8. Urine osmolality on 06/05: 478. COVID PCR on 05/31: Negative. DISCHARGE CONDITION: Stable. ACTIVITY: As tolerated. DIET: Regular diet with a 2 L fluid restriction. DISCHARGE MEDICATIONS: 1. Fludrocortisone 0.1 mg two daily. 2. Furosemide 20 mg p.o. daily p.r.n. for edema. 3. Midodrine 5 mg p.o. t.i.d. 4. Multivitamin 1 tablet p.o. daily. 5. Folic acid 1 mg p.o. daily. 6. Eliquis 5 mg p.o. b.i.d. 7. Amiodarone 200 mg p.o. q.a.m. DISCHARGE INSTRUCTIONS: The patient to follow up with his PCP in a week and Dr. Zhu in a week. He should have his echo repeated in 2.5 months, because he may need a defibrillator. Job ID: [id number] [facility]
== END 2020-06-07 11:36 | disposition home or self-care (01) | DRG 312 ==
LOC: ERS 14:06 → 2NO 16:35
PROVIDERS: ADMIT Internal Medicine; ATTEND Internal Medicine
DX: I95.1 Orthostatic hypotension (principal); I50.22 Chronic systolic (congestive) heart failure; E87.1 Hypo-osmolality and hyponatremia; I42.9 Cardiomyopathy, unspecified; I48.20 Chronic atrial fibrillation, unspecified; I25.10 Atherosclerotic heart disease of native coronary artery without angina pectoris; M19.90 Unspecified osteoarthritis, unspecified site; Z20.828 Contact with and (suspected) exposure to other viral communicable diseases; K27.9 Peptic ulcer, site unspecified, unspecified as acute or chronic, without hemorrhage or perforation; I34.0 Nonrheumatic mitral (valve) insufficiency; D53.9 Nutritional anemia, unspecified; R26.89 Other abnormalities of gait and mobility; E78.00 Pure hypercholesterolemia, unspecified; Z88.0 Allergy status to penicillin; Z88.1 Allergy status to other antibiotic agents; Z79.01 Long term (current) use of anticoagulants; Z79.899 Other long term (current) drug therapy; Z90.49 Acquired absence of other specified parts of digestive tract; Z95.0 Presence of cardiac pacemaker; Z87.891 Personal history of nicotine dependence; Z98.890 Other specified postprocedural states; Z95.5 Presence of coronary angioplasty implant and graft
CPT/HCPCS: 36415; 80048; 82330; 82533; 82565; 82607; 82746; 82803; 83605; 83930; 83935; 84439; 84443; 85014; 85018; 85025; 85027; 85049; 87040; 87635; 93005; 93306; 93798; U0003

== ENCOUNTER 2022-01-10 00:39 | Inpatient (IN) | payer MEDICARE ==
[2022-01-10] MEDS ORDERED: Acetaminophen 325 MG TAB PO PRN (03:13)
[2022-01-10] MEDS ORDERED: Ondansetron PF 4 MG/2 ML Vial IVP PRN (03:13)
[2022-01-10 04:57] LABS: #Lymphocytes 1.2 thou/uL (1.20-3.40); #Monocytes 0.5 thou/uL (0.11-0.59); #Neutrophils 4.2 thou/uL (1.40-6.50); %Basophils 0.2 % (0.0-1.0); %Eosinophils 0.5 % (0.0-10.0); %Lymphocytes 20.1 % (21.0-51.0); %Neutrophils 71.2 % (42.0-75.0); Hemoglobin 9.9 g/dL (14.0-18.0); Mean Corpuscular HGB CONC 33.3 g/dL (32.0-36.0); Mean Corpuscular Hemoglobin 34.7 pg (27.0-31.0); Mean Platelet Volume 8.1 fL (7.4-10.4); Platelet Count 122 thou/uL (130-400); RBC Distribution Width 12.5 % (11.5-14.5); Red Blood Cell (RBC) Count 2.86 mill/uL (4.70-6.10); White Blood Cell (WBC) Count 5.9 thou/uL (4.8-10.8)
[2022-01-10 05:10] LABS: Anion Gap 10 mmol/L (10-20); BUN (Urea Nitrogen) 25 mg/dL (8.4-25.7); Calc. Creatinine Clearance 30 mL/min (70-130); Calcium 8.3 mg/dL (7.8-10.44); Carbon Dioxide 20 mmol/L (23-31); Chloride 113 mmol/L (98-107); Glucose 92 mg/dL (83-110); Potassium 3.9 mmol/L (3.5-5.1); Sodium 139 mmol/L (136-145)
[2022-01-10 05:16] LABS: Troponin I 0.011 ng/mL (< 0.028)
[2022-01-10 06:21] LABS: Magnesium 1.9 mg/dL (1.6-2.6)
[2022-01-10] MEDS: Amiodarone 200 MG TAB PO SCH (08:33)
[2022-01-10] MEDS: Multivit, Therapeutic 1 TAB PO SCH (08:33)
[2022-01-10] MEDS: Midodrine HCl 5 MG TAB PO SCH ×3 (08:33→20:34)
[2022-01-10] MEDS: Rosuvastatin 20 MG TAB PO SCH (08:33)
[2022-01-10 08:55] LABS: Troponin I Less than 0.010 ng/mL (< 0.028)
[2022-01-10] MEDS ORDERED: Apixaban 5 MG TAB PO SCH (09:00)
[2022-01-10] MEDS ORDERED: Morphine 2 MG/ML VIAL SLOW IVP PRN (09:23)
[2022-01-10] MEDS: HYDROcodone/Acetaminophen 5/325 mg Tablet PO PRN ×3 (10:19→20:34)
[2022-01-10 12:00] LABS: SARS-CoV-2 PCR by NAA Not Detected (NotDetected)
[2022-01-10] MEDS: Sodium Chloride 0.9% 1,000 ML IV SCH (20:38)
[2022-01-11 04:45] LABS: #Eosinphils 0.1 thou/uL (0.0-0.7); #Lymphocytes 1.3 thou/uL (1.20-3.40); #Monocytes 0.4 thou/uL (0.11-0.59); #Neutrophils 2.7 thou/uL (1.40-6.50); %Basophils 0.2 % (0.0-1.0); %Eosinophils 2.4 % (0.0-10.0); %Lymphocytes 29.2 % (21.0-51.0); %Neutrophils 60.3 % (42.0-75.0); Hemoglobin 10.7 g/dL (14.0-18.0); Mean Corpuscular HGB CONC 33.8 g/dL (32.0-36.0); Mean Corpuscular Hemoglobin 35.5 pg (27.0-31.0); Mean Platelet Volume 8.2 fL (7.4-10.4); Platelet Count 118 thou/uL (130-400); RBC Distribution Width 12.4 % (11.5-14.5); Red Blood Cell (RBC) Count 3.01 mill/uL (4.70-6.10); White Blood Cell (WBC) Count 4.5 thou/uL (4.8-10.8)
[2022-01-11 05:03] LABS: Anion Gap 13 mmol/L (10-20); BUN (Urea Nitrogen) 20 mg/dL (8.4-25.7); Calc. Creatinine Clearance 31 mL/min (70-130); Calcium 8.5 mg/dL (7.8-10.44); Carbon Dioxide 17 mmol/L (23-31); Chloride 113 mmol/L (98-107); Glucose 88 mg/dL (83-110); Magnesium 1.9 mg/dL (1.6-2.6); Potassium 3.9 mmol/L (3.5-5.1); Sodium 139 mmol/L (136-145)
[2022-01-11] MEDS: Amiodarone 200 MG TAB PO SCH (08:25)
[2022-01-11] MEDS: Midodrine HCl 5 MG TAB PO SCH ×3 (08:25→20:51)
[2022-01-11] MEDS: Multivit, Therapeutic 1 TAB PO SCH (08:25)
[2022-01-11] MEDS: Fludrocortisone Acetate 0.1 MG TAB PO SCH (08:25)
[2022-01-11] MEDS: Rosuvastatin 20 MG TAB PO SCH (08:25)
[2022-01-11] MEDS: Sodium Chloride 0.9% 1,000 ML IV SCH ×2 (08:32→23:20)
[2022-01-11] MEDS: HYDROcodone/Acetaminophen 5/325 mg Tablet PO PRN (20:51)
[2022-01-11] MEDS ORDERED: Apixaban 5 MG TAB PO SCH (21:00)
[2022-01-12] MEDS: HYDROcodone/Acetaminophen 5/325 mg Tablet PO PRN ×2 (03:42→16:57)
[2022-01-12 04:09] LABS: #Eosinphils 0.2 thou/uL (0.0-0.7); #Lymphocytes 1.1 thou/uL (1.20-3.40); #Monocytes 0.5 thou/uL (0.11-0.59); #Neutrophils 4.1 thou/uL (1.40-6.50); %Basophils 0.4 % (0.0-1.0); %Eosinophils 2.8 % (0.0-10.0); %Lymphocytes 19.4 % (21.0-51.0); %Monocytes 7.9 % (0.0-10.0); %Neutrophils 69.6 % (42.0-75.0); Hemoglobin 10.5 g/dL (14.0-18.0); Mean Corpuscular HGB CONC 34.8 g/dL (32.0-36.0); Mean Corpuscular Hemoglobin 35.9 pg (27.0-31.0); Mean Platelet Volume 7.9 fL (7.4-10.4); Platelet Count 123 thou/uL (130-400); RBC Distribution Width 12.3 % (11.5-14.5); Red Blood Cell (RBC) Count 2.92 mill/uL (4.70-6.10); White Blood Cell (WBC) Count 5.9 thou/uL (4.8-10.8)
[2022-01-12 04:29] LABS: Anion Gap 10 mmol/L (10-20); BUN (Urea Nitrogen) 19 mg/dL (8.4-25.7); Calc. Creatinine Clearance 35 mL/min (70-130); Calcium 8.3 mg/dL (7.8-10.44); Carbon Dioxide 20 mmol/L (23-31); Chloride 112 mmol/L (98-107); Glucose 88 mg/dL (83-110); Magnesium 1.8 mg/dL (1.6-2.6); Potassium 3.7 mmol/L (3.5-5.1); Sodium 138 mmol/L (136-145)
[2022-01-12] MEDS ORDERED: Lactated Ringer's 500 ML IV SCH (08:30)
[2022-01-12] MEDS: Midodrine HCl 5 MG TAB PO SCH ×3 (10:26→21:17)
[2022-01-12] MEDS: Amiodarone 200 MG TAB PO SCH (10:26)
[2022-01-12] MEDS: Rosuvastatin 20 MG TAB PO SCH (10:27)
[2022-01-12] MEDS: Multivit, Therapeutic 1 TAB PO SCH (10:27)
[2022-01-12] MEDS: Fludrocortisone Acetate 0.1 MG TAB PO SCH ×2 (10:29→21:17)
[2022-01-12] MEDS ORDERED: Iopamidol 370 76% 50 ML VIAL FS ONE (14:34)
[2022-01-12] MEDS: Sodium Chloride 0.9% 1,000 ML IV SCH (14:59)
[2022-01-12] MEDS ORDERED: Gabapentin 100 MG CAP PO SCH (16:45)
[2022-01-13] MEDS: HYDROcodone/Acetaminophen 5/325 mg Tablet PO PRN ×2 (01:50→18:33)
[2022-01-13] MEDS: Sodium Chloride 0.9% 1,000 ML IV SCH ×2 (01:53→15:37)
[2022-01-13 04:55] LABS: Anion Gap 11 mmol/L (10-20); BUN (Urea Nitrogen) 21 mg/dL (8.4-25.7); Calc. Creatinine Clearance 36 mL/min (70-130); Carbon Dioxide 19 mmol/L (23-31); Chloride 111 mmol/L (98-107); Potassium 3.7 mmol/L (3.5-5.1); Sodium 137 mmol/L (136-145)
[2022-01-13 04:56] LABS: Glucose 89 mg/dL (83-110)
[2022-01-13] MEDS: Amiodarone 200 MG TAB PO SCH (08:54)
[2022-01-13] MEDS: Fludrocortisone Acetate 0.1 MG TAB PO SCH ×2 (08:54→20:36)
[2022-01-13] MEDS: Multivit, Therapeutic 1 TAB PO SCH (08:54)
[2022-01-13] MEDS: Midodrine HCl 5 MG TAB PO SCH ×3 (08:54→20:36)
[2022-01-13] MEDS: Rosuvastatin 20 MG TAB PO SCH (08:55)
[2022-01-13] MEDS ORDERED: Gabapentin 300 MG CAP PO SCH (18:15)
[2022-01-13] MEDS ORDERED: Gabapentin 100 MG CAP PO SCH (18:45)
[2022-01-14] MEDS: Sodium Chloride 0.9% 1,000 ML IV SCH ×2 (02:42→14:27)
[2022-01-14 05:22] LABS: Anion Gap 12 mmol/L (10-20); BUN (Urea Nitrogen) 19 mg/dL (8.4-25.7); Calc. Creatinine Clearance 41 mL/min (70-130); Calcium 8.2 mg/dL (7.8-10.44); Carbon Dioxide 19 mmol/L (23-31); Chloride 112 mmol/L (98-107); Glucose 82 mg/dL (83-110); Potassium 3.5 mmol/L (3.5-5.1); Sodium 139 mmol/L (136-145)
[2022-01-14] MEDS: HYDROcodone/Acetaminophen 5/325 mg Tablet PO PRN (06:41)
[2022-01-14] MEDS: Amiodarone 200 MG TAB PO SCH (08:54)
[2022-01-14] MEDS: Rosuvastatin 20 MG TAB PO SCH (08:54)
[2022-01-14] MEDS: Fludrocortisone Acetate 0.1 MG TAB PO SCH ×2 (08:54→20:46)
[2022-01-14] MEDS: Midodrine HCl 5 MG TAB PO SCH ×3 (08:54→20:46)
[2022-01-14] MEDS: Multivit, Therapeutic 1 TAB PO SCH (08:54)
[2022-01-14] MEDS ORDERED: Gabapentin 100 MG CAP PO PRN (17:00)
[2022-01-15 04:52] LABS: Anion Gap 11 mmol/L (10-20); BUN (Urea Nitrogen) 18 mg/dL (8.4-25.7); Calc. Creatinine Clearance 47 mL/min (70-130); Carbon Dioxide 19 mmol/L (23-31); Chloride 111 mmol/L (98-107); Glucose 92 mg/dL (83-110); Potassium 3.1 mmol/L (3.5-5.1); Sodium 138 mmol/L (136-145)
[2022-01-15] MEDS: Sodium Chloride 0.9% 1,000 ML IV SCH (05:21)
[2022-01-15] MEDS ORDERED: Clindamycin/D5W 600 mg/50 ml Premix Bag ONE (07:17)
[2022-01-15] MEDS ORDERED: Levofloxacin 500 mg/D5W 100 ml Premix Bag ONE (07:17)
[2022-01-15] MEDS ORDERED: Fentanyl 100 MCG/2 ML VIAL ONE (09:20)
[2022-01-15] MEDS ORDERED: Midazolam HCl 2 mg/2 ml Vial ONE (09:20)
[2022-01-15] MEDS: Midodrine HCl 5 MG TAB PO SCH ×3 (13:36→20:53)
[2022-01-15] MEDS: Multivit, Therapeutic 1 TAB PO SCH (13:36)
[2022-01-15] MEDS: Amiodarone 200 MG TAB PO SCH (13:36)
[2022-01-15] MEDS: Fludrocortisone Acetate 0.1 MG TAB PO SCH ×2 (13:37→20:53)
[2022-01-15] MEDS: Rosuvastatin 20 MG TAB PO SCH (13:37)
[2022-01-15] MEDS ORDERED: Potassium Chloride 20 MEQ TAB PO SCH (15:00)
[2022-01-15] MEDS: Doxycycline 100 MG CAP PO SCH (20:53)
[2022-01-15] MEDS: HYDROcodone/Acetaminophen 5/325 mg Tablet PO PRN (20:53)
[2022-01-16 03:17] VITALS: TEMP 98.4
[2022-01-16 04:21] LABS: Anion Gap 10 mmol/L (10-20); BUN (Urea Nitrogen) 21 mg/dL (8.4-25.7); Calc. Creatinine Clearance 49 mL/min (70-130); Calcium 8.3 mg/dL (7.8-10.44); Carbon Dioxide 20 mmol/L (23-31); Chloride 112 mmol/L (98-107); Glucose 92 mg/dL (83-110); Potassium 3.4 mmol/L (3.5-5.1); Sodium 139 mmol/L (136-145)
[2022-01-16] MEDS ORDERED: Potassium Chloride 20 MEQ TAB PO SCH (08:00)
[2022-01-16] MEDS: Fludrocortisone Acetate 0.1 MG TAB PO SCH (08:54)
[2022-01-16] MEDS: Doxycycline 100 MG CAP PO SCH (08:54)
[2022-01-16] MEDS: Rosuvastatin 20 MG TAB PO SCH (08:55)
[2022-01-16] MEDS: Multivit, Therapeutic 1 TAB PO SCH (08:55)
[2022-01-16] MEDS: Amiodarone 200 MG TAB PO SCH (08:55)
[2022-01-16] MEDS: Midodrine HCl 5 MG TAB PO SCH (08:55)
[2022-01-16 12:17] VITALS: BP 148/82
[2022-01-17] MEDS ORDERED: Potassium Chloride 20 MEQ TAB PO SCH (08:00)
[2022-01-17] MEDS ORDERED: Apixaban 5 MG TAB PO SCH (09:00)
== END 2022-01-16 11:55 | disposition home or self-care (01) | DRG 261 ==
LOC: 2NO 00:39 → OBSVTOIN 01-11 14:29
PROVIDERS: ADMIT Internal Medicine; ATTEND Internal Medicine
PROC: 02PA0MZ Removal of Cardiac Lead from Heart, Open Approach (ICD-10-PCS; principal; 2022-01-15)
PROC: 02H63JZ Insertion of Pacemaker Lead into Right Atrium, Percutaneous Approach (ICD-10-PCS; 2022-01-15)
DX: T82.897A Other specified complication of cardiac prosthetic devices, implants and grafts, initial encounter (principal); I13.0 Hypertensive heart and chronic kidney disease with heart failure and stage 1 through stage 4 chronic kidney disease, or unspecified chronic kidney disease; I50.42 Chronic combined systolic (congestive) and diastolic (congestive) heart failure; N17.9 Acute kidney failure, unspecified; I95.1 Orthostatic hypotension; I25.10 Atherosclerotic heart disease of native coronary artery without angina pectoris; N18.30 Chronic kidney disease, stage 3 unspecified; D63.1 Anemia in chronic kidney disease; D69.6 Thrombocytopenia, unspecified; I48.0 Paroxysmal atrial fibrillation; I73.9 Peripheral vascular disease, unspecified; E78.00 Pure hypercholesterolemia, unspecified; Z88.0 Allergy status to penicillin; Z95.810 Presence of automatic (implantable) cardiac defibrillator; Z98.1 Arthrodesis status; Z90.49 Acquired absence of other specified parts of digestive tract; Z98.890 Other specified postprocedural states; Z87.891 Personal history of nicotine dependence; Z79.01 Long term (current) use of anticoagulants; Z79.899 Other long term (current) drug therapy; Z88.1 Allergy status to other antibiotic agents; Y83.8 Other surgical procedures as the cause of abnormal reaction of the patient, or of later complication, without mention of misadventure at the time of the procedure
CPT/HCPCS: 33216; 36005; 36415; 71045; 80048; 82533; 82607; 82746; 83735; 84484; 85025; 93306; 99152; 99153; C1898; G0378; J1956; J2250; J3010; J3370; J3490; J7050; Q9967; U0003; U0005

== ENCOUNTER 2024-02-19 09:32 | Inpatient (IN) | payer MEDICARE ==
[2024-02-19 10:41] LABS: #Basophils Less than 0.03 10x3/uL (0.0-0.2); #Eosinphils Less than 0.03 10x3/uL (0.0-0.7); %Basophils 0.1 % (0.0-1.0); %Monocytes 4.1 % (0.0-10.0); %Neutrophils 92.2 % (42.0-75.0); Hematocrit 35.3 % (42.0-52.0); Hemoglobin 11.1 g/dL (14.0-18.0); Mean Corpuscular HGB CONC 31.4 g/dL (32.0-36.0); Mean Corpuscular Hemoglobin 33.8 pg (27.0-31.0); Mean Corpuscular Volume 107.6 fL (78.0-98.0); Mean Platelet Volume 11.1 fL (7.4-10.4); Platelet Count 146 10x3/uL (130-400); Red Blood Cell (RBC) Count 3.28 mill/uL (4.70-6.10)
[2024-02-19 10:56] LABS: INR-International Normal Ratio 1.1; Prothrombin Time 13.7 sec (12.0-14.7)
[2024-02-19 10:57] LABS: PTT 28.1 sec (22.9-36.1)
[2024-02-19 11:07] LABS: ALT (SGPT) 16 U/L (8-55); AST (SGOT) 23 U/L (5-34); Albumin 3.5 g/dL (3.4-4.8); Alkaline Phosphatase 55 U/L (40-110); Anion Gap 19 mmol/L (10-20); BUN (Urea Nitrogen) 31 mg/dL (8.4-25.7); Calc. Creatinine Clearance 0 mL/min (70-130); Calcium 9.3 mg/dL (7.8-10.44); Carbon Dioxide 17 mmol/L (23-31); Chloride 107 mmol/L (98-107); Estimated GFR 47; Globulin 3.1 g/dL (2.4-3.5); Glucose 94 mg/dL (83-110); Potassium 4.5 mmol/L (3.5-5.1); Protein, Total 6.6 g/dL (5.8-8.1); Sodium 138 mmol/L (136-145)
[2024-02-19 11:37] LABS: Troponin I Less than 0.010 ng/mL (< 0.028)
[2024-02-19] MEDS ORDERED: LevoFLOXacin 750 mg/D5W 150 ml Premix Bag ONE (12:37)
[2024-02-19] MEDS ORDERED: Acetaminophen 500 MG TAB ONE (12:37)
[2024-02-19] MEDS ORDERED: Sodium Chloride 0.9% 1,000 ML IV SCH (13:00)
[2024-02-19] MEDS ORDERED: Ondansetron PF 4 MG/2 ML Vial IVP PRN (13:00)
[2024-02-19] MEDS ORDERED: Ondansetron ODT 4 MG TAB SL PRN (13:00)
[2024-02-19] MEDS ORDERED: Acetaminophen 325 MG TAB PO PRN ×2 (13:00→13:36)
[2024-02-19] MEDS ORDERED: Calcium Carbonate 500 MG ChewTAB PO PRN (13:36)
[2024-02-19] MEDS ORDERED: Acetaminophen 650 MG Suppository PR PRN (13:36)
[2024-02-19] MEDS ORDERED: Senokot S 8.6-50 MG TAB PO PRN (13:36)
[2024-02-19] MEDS ORDERED: Albuterol 2.5 MG (3 mL) NEB NEB PRN (13:38)
[2024-02-19] MEDS: Sodium Chloride 0.9% 1,000 ML IV SCH (16:40)
[2024-02-19 18:22] VITALS: BMI 20.2
[2024-02-19] MEDS: Ipratropium/Albuterol 3 ML NEB NEB SCH (21:25)
[2024-02-20 04:05] LABS: Bacteria/HPF None Seen HPF (None Seen); Bilirubin Negative (Negative); Blood, Urine Negative (Negative); CAUTI Indications for Culture Alt mental st,lethar; Clarity Clear (Clear); Glucose, Urine (Dipstick) Normal (Negative); Ketone, Urine Negative (Negative); Leukocyte Negative Leu/uL (Negative); Nitrite Negative (Negative); Protein, Urine (Dipstick) Negative (Neg-Trace); RBC/HPF 0-3 HPF (0-3); Specific Gravity, Urine 1.023 (1.002-1.036); Squamous Epithelial 0-3 HPF (0-3); WBC/HPF 0-3 HPF (0-3)
[2024-02-20 04:09] LABS: Urine Culture Reflex No No
[2024-02-20 04:19] LABS: Legionella Urinary Ag Negative (Negative); Strep pneumo Urine Ag NEGATIVE (NEGATIVE)
[2024-02-20 05:07] LABS: #Basophils Less than 0.03 10x3/uL (0.0-0.2); #Eosinphils Less than 0.03 10x3/uL (0.0-0.7); %Basophils 0.1 % (0.0-1.0); %Eosinophils 0.1 % (0.0-10.0); %Monocytes 4.6 % (0.0-10.0); %Neutrophils 86.8 % (42.0-75.0); Hematocrit 30.4 % (42.0-52.0); Mean Corpuscular HGB CONC 32.9 g/dL (32.0-36.0); Mean Corpuscular Hemoglobin 33.1 pg (27.0-31.0); Mean Corpuscular Volume 100.7 fL (78.0-98.0); Mean Platelet Volume 11.1 fL (7.4-10.4); Platelet Count 128 10x3/uL (130-400); RBC Distribution Width 14.1 % (11.5-14.5); Red Blood Cell (RBC) Count 3.02 mill/uL (4.70-6.10)
[2024-02-20 05:17] LABS: Anion Gap 15 mmol/L (10-20); BUN (Urea Nitrogen) 29 mg/dL (8.4-25.7); Calc. Creatinine Clearance 43 mL/min (70-130); Calcium 8.7 mg/dL (7.8-10.44); Carbon Dioxide 19 mmol/L (23-31); Chloride 107 mmol/L (98-107); Estimated GFR 59; Glucose 90 mg/dL (83-110); Sodium 137 mmol/L (136-145)
[2024-02-20 08:25] LABS: Magnesium 1.7 mg/dL (1.6-2.6)
[2024-02-20] MEDS: Pantoprazole DR 40 MG TAB PO SCH (09:10)
[2024-02-20] MEDS: Fludrocortisone Acetate 0.1 MG TAB PO SCH (09:10)
[2024-02-20] MEDS: Rosuvastatin 20 MG TAB PO SCH (09:11)
[2024-02-20] MEDS: Sacubitril 24MG/Valsartan 26 MG TAB PO SCH (09:11)
[2024-02-20] MEDS: Midodrine HCl 5 MG TAB PO SCH (09:11)
[2024-02-20] MEDS: Apixaban 5 MG TAB PO SCH (09:11)
[2024-02-20] MEDS: Tamsulosin HCl 0.4 MG CAP PO SCH (09:11)
[2024-02-20] MEDS: Amiodarone 200 MG TAB PO SCH (09:11)
[2024-02-21 05:29] LABS: Anion Gap 13 mmol/L (10-20); BUN (Urea Nitrogen) 20 mg/dL (8.4-25.7); Calc. Creatinine Clearance 49 mL/min (70-130); Calcium 8.7 mg/dL (7.8-10.44); Carbon Dioxide 19 mmol/L (23-31); Chloride 110 mmol/L (98-107); Estimated GFR 66; Glucose 103 mg/dL (83-110); Magnesium 1.7 mg/dL (1.6-2.6); Potassium 3.7 mmol/L (3.5-5.1); Sodium 138 mmol/L (136-145)
[2024-02-21 06:38] LABS: #Basophils Less than 0.03 10x3/uL (0.0-0.2); #Eosinphils Less than 0.03 10x3/uL (0.0-0.7); %Eosinophils 0.2 % (0.0-10.0); %Lymphocytes 7.8 % (21.0-51.0); %Monocytes 6.7 % (0.0-10.0); %Neutrophils 85.1 % (42.0-75.0); Hematocrit 29.5 % (42.0-52.0); Hemoglobin 9.6 g/dL (14.0-18.0); Mean Corpuscular HGB CONC 32.5 g/dL (32.0-36.0); Mean Corpuscular Hemoglobin 33.6 pg (27.0-31.0); Mean Corpuscular Volume 103.1 fL (78.0-98.0); Mean Platelet Volume 10.8 fL (7.4-10.4); Platelet Count 132 10x3/uL (130-400); Red Blood Cell (RBC) Count 2.86 mill/uL (4.70-6.10)
[2024-02-21] MEDS: Lactated Ringer's 1,000 ML IV SCH (09:05)
[2024-02-21] MEDS ORDERED: Ipratropium/Albuterol 3 ML NEB NEB PRN (11:59)
[2024-02-21] MEDS: LevoFLOXacin 750 mg/D5W 750 MG in Premix 1 BAG IVPB SCH (14:37)
[2024-02-21] MEDS: Sacubitril 24MG/Valsartan 26 MG TAB PO SCH (20:46)
[2024-02-21] MEDS: rOPINIRole HCl 1 MG TAB PO SCH (20:46)
[2024-02-22 05:51] LABS: #Basophils Less than 0.03 10x3/uL (0.0-0.2); %Eosinophils 1.1 % (0.0-10.0); %Lymphocytes 13.2 % (21.0-51.0); %Monocytes 7.4 % (0.0-10.0); %Neutrophils 77.9 % (42.0-75.0); Hematocrit 27.7 % (42.0-52.0); Hemoglobin 9.4 g/dL (14.0-18.0); Mean Corpuscular HGB CONC 33.9 g/dL (32.0-36.0); Mean Corpuscular Hemoglobin 33.5 pg (27.0-31.0); Mean Corpuscular Volume 98.6 fL (78.0-98.0); Mean Platelet Volume 10.8 fL (7.4-10.4); Platelet Count 133 10x3/uL (130-400); RBC Distribution Width 13.7 % (11.5-14.5); Red Blood Cell (RBC) Count 2.81 mill/uL (4.70-6.10)
[2024-02-22 06:05] LABS: Anion Gap 14 mmol/L (10-20); BUN (Urea Nitrogen) 16 mg/dL (8.4-25.7); Calc. Creatinine Clearance 58 mL/min (70-130); Calcium 8.5 mg/dL (7.8-10.44); Carbon Dioxide 20 mmol/L (23-31); Chloride 110 mmol/L (98-107); Estimated GFR 82; Glucose 89 mg/dL (83-110); Magnesium 1.7 mg/dL (1.6-2.6); Potassium 3.5 mmol/L (3.5-5.1); Sodium 140 mmol/L (136-145)
[2024-02-22] MEDS: LevoFLOXacin 750 mg/D5W 750 MG in Premix 1 BAG IVPB SCH (15:54)
[2024-02-22] MEDS: Benzonatate 100 MG CAP PO PRN (21:20)
[2024-02-23] MEDS: Haloperidol Lactate 5 MG/ML VIAL SLOW IVP SCH (02:44)
[2024-02-23 09:28] VITALS: BP 159/75; TEMP 97.9
[2024-02-23] MEDS ORDERED: LevoFLOXacin 750 MG TAB PO SCH (14:00)
== END 2024-02-23 11:30 | disposition home or self-care (01) | DRG 193 ==
LOC: ERS 09:32 → ERHOLD 13:28 → 2NO 19:40
PROVIDERS: ADMIT Family Medicine; ATTEND Internal Medicine
DX: J18.9 Pneumonia, unspecified organism (principal); G93.41 Metabolic encephalopathy; I50.42 Chronic combined systolic (congestive) and diastolic (congestive) heart failure; I48.20 Chronic atrial fibrillation, unspecified; N18.30 Chronic kidney disease, stage 3 unspecified; D64.9 Anemia, unspecified; I25.10 Atherosclerotic heart disease of native coronary artery without angina pectoris; N40.0 Benign prostatic hyperplasia without lower urinary tract symptoms; E03.9 Hypothyroidism, unspecified; F03.90 Unspecified dementia, unspecified severity, without behavioral disturbance, psychotic disturbance, mood disturbance, and anxiety; I95.1 Orthostatic hypotension; D69.6 Thrombocytopenia, unspecified; Z98.1 Arthrodesis status; Z87.891 Personal history of nicotine dependence; Z79.899 Other long term (current) drug therapy; Z95.810 Presence of automatic (implantable) cardiac defibrillator; Z88.1 Allergy status to other antibiotic agents; Z88.0 Allergy status to penicillin; Z79.01 Long term (current) use of anticoagulants; Z79.52 Long term (current) use of systemic steroids; Z90.49 Acquired absence of other specified parts of digestive tract
CPT/HCPCS: 36415; 36416; 70450; 71045; 74230; 80048; 80053; 81001; 83605; 83735; 83880; 84443; 84484; 85025; 85610; 85730; 87040; 87449; 87899; 93005; 94640; 94760; J1630; J1956; J7050; J7120; J7620